=== PATIENT | female | born 1955 | race Caucasian/White ===

== ENCOUNTER 2017-01-11 07:56 | Emergency (ER) | payer BC, MEDICAID, OTHER ==
[~2017-01-11] VITALS: Ht 167.6 cm; Wt 72.6 kg
[~2017-01-11 07:56] MED LIST: BABY81CH; CAHNTIXC PO; CHAN0.5P PO; LIPI20TA; PERC5TAB8; WELLBSR150 PO
[2017-01-11 08:00] VITALS: BP 138/75
[2017-01-11] MEDS ORDERED: NORC5TAB PO (08:06)
[2017-01-11] MEDS ORDERED: SIMV40TA2 PO (08:06)
--- NOTE | 2017-01-11 08:44 | REP ---
Clinical: Trauma. Technique: AP and lateral views of the right foot. Comparison: 12/31/2010. Findings: Progressive osteopenia and degenerative changes are appreciated. No acute fracture or dislocation identified. No subcutaneous emphysema or radiodense foreign body. Impression: Age-related osteopenia and degenerative changes. No acute fracture or dislocation. Signed by Mohamud Benavidez MD 01/11/2017 08:36 A
== END 2017-01-11 08:46 | disposition home or self-care (01) ==
LOC: M ED 08:24
DX: S90.111A Contusion of right great toe without damage to nail, initial encounter (principal); W19.XXXA Unspecified fall, initial encounter; Y92.099 Unspecified place in other non-institutional residence as the place of occurrence of the external cause; Y93.9 Activity, unspecified; Y99.9 Unspecified external cause status; Z87.891 Personal history of nicotine dependence; Z79.82 Long term (current) use of aspirin; Z88.6 Allergy status to analgesic agent

== ENCOUNTER → 2017-01-21 | Outpatient (REF) | payer MEDICAID ==
[~2017-01-21] MED LIST changes: +NORC1TAB4 PO; +SIMV40TA2 PO
[2017-01-21 15:35] LABS: ALBUMIN 3.7 GM/DL (3.2-5.2); ALBUMIN/GLOBULIN RATIO 1.28 (1.00-1.93); ALKALINE PHOSPHATASE 58 U/L (45-117); ALT/SGPT 21 U/L (12-78); ANION GAP 6 MEQ/L (8-16); AST/SGOT 13 U/L (15-37); BILIRUBIN,TOTAL 0.2 MG/DL (0.2-1.0); BLOOD UREA NITROGEN 21 MG/DL (7-18); CALCIUM LEVEL 8.5 MG/DL (8.8-10.2); CARBON DIOXIDE LEVEL 27 MEQ/L (21-32); CHLORIDE LEVEL 109 MEQ/L (98-107); CHOLESTEROL LEVEL 198 MG/DL (<200); CREATININE FOR GFR 0.81 MG/DL (0.55-1.02); GLOMERULAR FILTRATION RATE > 60.0 (>45); GLUCOSE, FASTING 98 MG/DL (80-110); POTASSIUM SERUM 4.5 MEQ/L (3.5-5.1); SODIUM LEVEL 142 MEQ/L (136-145); TOTAL PROTEIN 6.6 GM/DL (6.4-8.2); TRIGLYCERIDES LEVEL 60 MG/DL (<150)
== END ==
LOC: M SFHCLACO 08:04
PROVIDERS: ATTEND Physician Assistant
DX: E78.2 Mixed hyperlipidemia (principal)

== ENCOUNTER → 2017-07-22 | Outpatient (REF) | payer MEDICAID, OTHER ==
[~2017-07-22] MED LIST changes: +BENA25TA10 PO; +CALC600T31 PO; +COQ-30CA2 PO
[2017-07-22 16:02] LABS: ALBUMIN 3.8 GM/DL (3.2-5.2); ALBUMIN/GLOBULIN RATIO 1.27 (1.00-1.93); ALKALINE PHOSPHATASE 56 U/L (45-117); ALT/SGPT 19 U/L (12-78); ANION GAP 7 MEQ/L (8-16); AST/SGOT 14 U/L (15-37); BILIRUBIN,TOTAL 0.3 MG/DL (0.2-1.0); BLOOD UREA NITROGEN 17 MG/DL (7-18); CALCIUM LEVEL 8.7 MG/DL (8.8-10.2); CARBON DIOXIDE LEVEL 28 MEQ/L (21-32); CHLORIDE LEVEL 106 MEQ/L (98-107); CHOLESTEROL LEVEL 228 MG/DL (<200); CREATININE FOR GFR 0.79 MG/DL (0.55-1.02); GLOMERULAR FILTRATION RATE > 60.0 (>45); GLUCOSE, FASTING 91 MG/DL (80-110); POTASSIUM SERUM 4.4 MEQ/L (3.5-5.1); SODIUM LEVEL 141 MEQ/L (136-145); TOTAL PROTEIN 6.8 GM/DL (6.4-8.2); TRIGLYCERIDES LEVEL 60 MG/DL (<150)
== END ==
LOC: M SFHCLACO 08:03
PROVIDERS: ATTEND Physician Assistant
DX: E78.2 Mixed hyperlipidemia (principal)

== ENCOUNTER → 2017-09-15 | Outpatient (REF) | payer OTHER ==
[2017-09-15 13:05] LABS: BASO % 0.7 % (0.0-1.0); EOS # 0.3 10^3/uL (0.0-0.50); EOS % 4.9 % (0.0-3.0); IMMATURE GRANULOCYTE % 0.4 % (0-0); LYMPH # 1.6 10^3/uL (1.5-4.5); LYMPH % 27.6 % (24.0-44.0); MEAN CORPUSCULAR HEMOGLOBIN 30.9 pg (27.0-33.0); MEAN CORPUSCULAR HGB CONC 33.1 g/dl (32.0-36.5); MEAN CORPUSCULAR VOLUME 93.3 fl (80.0-96.0); MONO # 0.4 10^3/uL (0.0-0.8); MONO % 7.6 % (0.0-5.0); NEUTROPHILS # 3.4 10^3/uL (1.8-7.7); NEUTROPHILS % 58.8 % (36.0-66.0); PLATELET COUNT, AUTOMATED 314 10^3/uL (150-450); RED CELL DISTRIBUTION WIDTH 14.6 % (11.5-14.5); WHITE BLOOD COUNT 5.7 10^3/uL (4.0-10.0)
== END ==
LOC: M LABDRWAD 12:10
PROVIDERS: ATTEND Physician Assistant Medical
DX: K62.5 Hemorrhage of anus and rectum (principal)

== ENCOUNTER 2017-09-18 08:53 | Day surgery (SDC) | payer OTHER ==
[~2017-09-18] VITALS: Ht 170.2 cm; Wt 74.0 kg
[2017-09-18] MEDS ORDERED: NS 1,000 ML IV ONE (09:45)
[2017-09-18] MEDS ORDERED: PROPOFOL 200 MG/20 ML VIAL As Ordered ONE ×2 (10:48→11:56)
--- NOTE | 2017-09-18 11:19 | ROOR ---
Patient Name: Bailey Esteves Procedure Date: 09/18/2017 10:49 AM Date of : 1955 Age: 62 Room: [facility] Gender: Female Note Status: Finalized Procedure: Colonoscopy Indications: Screening for colorectal malignant neoplasm Providers: Ish MENA MD Referring MD: LESLIE Morejon PA-C Requesting Provider: Medicines: Monitored Anesthesia Care Complications: No immediate complications. Procedure: Pre-Anesthesia Assessment: - The heart rate, respiratory rate, oxygen saturations, blood pressure, adequacy of pulmonary ventilation, and response to care were monitored throughout the procedure. The Colonoscope was introduced through the anus and advanced to the terminal ileum, with identification of the appendiceal orifice and IC valve. The colonoscopy was performed without difficulty. The patient tolerated the procedure well. The quality of the bowel preparation was good. Findings: The perianal and digital rectal examinations were normal. A 4 mm polyp was found in the hepatic flexure. The polyp was sessile. The polyp was removed with a cold snare. Resection and retrieval were complete. Multiple medium-mouthed diverticula were found in the sigmoid colon. Internal hemorrhoids were found during retroflexion. The hemorrhoids were medium-sized. The exam was otherwise without abnormality on direct and retroflexion views. Impression: - One 4 mm polyp at the hepatic flexure, removed with a cold snare. Resected and retrieved. - Mild diverticulosis in the sigmoid colon. - Internal hemorrhoids. - The colon examination was otherwise normal on direct and retroflexion views. Recommendation: - Repeat colonoscopy in 5 years for surveillance. Ish Mena MD Ish MENA MD 09/18/2017 11:19:12 AM This report has been signed electronically. Number of Addenda: 0 Note Initiated On: 09/18/2017 10:49 AM Estimated Blood Loss: Estimated blood loss: none.
[2017-09-18 11:41] VITALS: BP 144/93
== END 2017-09-18 11:43 | disposition home or self-care (01) ==
LOC: M OPP 08:53 → MERGE 11:40 → M OPP 11:43
PROVIDERS: ATTEND Internal Medicine Gastroenterology
DX: Z12.11 Encounter for screening for malignant neoplasm of colon (principal); D12.3 Benign neoplasm of transverse colon; K57.30 Diverticulosis of large intestine without perforation or abscess without bleeding; K64.8 Other hemorrhoids; E78.5 Hyperlipidemia, unspecified; Z87.19 Personal history of other diseases of the digestive system; Z78.0 Asymptomatic menopausal state; M25.572 Pain in left ankle and joints of left foot; R06.83 Snoring; Z88.8 Allergy status to other drugs, medicaments and biological substances; Z79.82 Long term (current) use of aspirin; Z79.899 Other long term (current) drug therapy; Z80.7 Family history of other malignant neoplasms of lymphoid, hematopoietic and related tissues

== ENCOUNTER 2017-10-08 10:11 | Emergency (ER) | payer OTHER ==
[~2017-10-08] VITALS: Ht 167.6 cm; Wt 72.7 kg
[2017-10-08] MEDS ORDERED: HYDR-3713 (10:22)
[2017-10-08] MEDS ORDERED: METHOCARBAMOL 1,000 MG/10 ML VIAL (J2800) IM ONE (10:45)
[2017-10-08] MEDS ORDERED: methylPREDNISolone INJ 125 MG/2 ML VIAL (J2930) IM ONE (10:45)
[2017-10-08] MEDS ORDERED: PRED20TA PO (11:30)
[2017-10-08] MEDS ORDERED: CYCL10TA PO (11:30)
[2017-10-08 11:35] VITALS: BP 125/65
[2017-10-13] MEDS ORDERED: CYCL10TA PO (13:11)
[2017-10-13] MEDS ORDERED: ASPI1TAB PO (13:11)
[2017-10-13] MEDS ORDERED: OXYC1TAB23 PO (13:11)
== END 2017-10-08 11:41 | disposition home or self-care (01) ==
LOC: M ED 10:11
DX: S16.1XXA Strain of muscle, fascia and tendon at neck level, initial encounter (principal); S29.012A Strain of muscle and tendon of back wall of thorax, initial encounter; X58.XXXA Exposure to other specified factors, initial encounter; Y92.9 Unspecified place or not applicable; Y93.H1 Activity, digging, shoveling and raking; Y99.9 Unspecified external cause status; Z87.891 Personal history of nicotine dependence; Z79.82 Long term (current) use of aspirin; Z79.899 Other long term (current) drug therapy; Z88.6 Allergy status to analgesic agent
CPT/HCPCS: 96372; 99283; J2800; J2930

== ENCOUNTER 2017-10-13 08:49 | Inpatient (IN) | payer OTHER ==
[2017-10-13] MEDS: SENOKOT S TAB PO ×2 (09:00→21:09)
[2017-10-13] MEDS: PANTOPRAZOLE 40MG INJ (PROTONIX) (C9113) IV (09:31)
[2017-10-13] MEDS: ONDANSETRON 4MG/2ML VIAL (J2405) IV (09:31)
[2017-10-13] MEDS: NS 500 ML IV ×2 (09:31→10:30)
[2017-10-13 09:37] LABS: BASO % 0.4 % (0.0-1.0); HEMOGLOBIN 17.7 g/dl (12.0-16.0); IMMATURE GRANULOCYTE % 0.5 % (0-0); LYMPH # 1.1 10^3/uL (1.5-4.5); LYMPH % 14.9 % (24.0-44.0); MEAN CORPUSCULAR HEMOGLOBIN 30.6 pg (27.0-33.0); MEAN CORPUSCULAR HGB CONC 35.4 g/dl (32.0-36.5); MEAN CORPUSCULAR VOLUME 86.5 fl (80.0-96.0); MONO # 0.8 10^3/uL (0.0-0.8); MONO % 10.2 % (0.0-5.0); NEUTROPHILS # 5.4 10^3/uL (1.8-7.7); PLATELET COUNT, AUTOMATED 255 10^3/uL (150-450); RED BLOOD COUNT 5.78 10^6/uL (4.00-5.40); RED CELL DISTRIBUTION WIDTH 13.8 % (11.5-14.5); WHITE BLOOD COUNT 7.3 10^3/uL (4.0-10.0)
[2017-10-13 09:48] LABS: INR 0.89; PARTIAL THROMBOPLASTIN TIME 26.8 SECONDS (26.8-37.9); PROTHROMBIN TIME 12.1 SECONDS (12.4-14.5)
[2017-10-13 09:55] LABS: ALBUMIN 4.4 GM/DL (3.2-5.2); ALBUMIN/GLOBULIN RATIO 0.98 (1.00-1.93); ALKALINE PHOSPHATASE 68 U/L (45-117); ALT/SGPT 22 U/L (12-78); ANION GAP 13 MEQ/L (8-16); AST/SGOT 14 U/L (7-37); BILIRUBIN,DIRECT < 0.1 MG/DL (0.0-0.2); BILIRUBIN,TOTAL 0.4 MG/DL (0.2-1.0); BLOOD UREA NITROGEN 25 MG/DL (7-18); CALCIUM LEVEL 9.8 MG/DL (8.8-10.2); CARBON DIOXIDE LEVEL 26 MEQ/L (21-32); CHLORIDE LEVEL 95 MEQ/L (98-107); CREATININE FOR GFR 1.29 MG/DL (0.55-1.02); GLOMERULAR FILTRATION RATE 44.7 (>45); GLUCOSE, FASTING 153 MG/DL (80-110); LIPASE 128 U/L (73-393); POTASSIUM SERUM 3.5 MEQ/L (3.5-5.1); SODIUM LEVEL 134 MEQ/L (136-145); TOTAL PROTEIN 8.9 GM/DL (6.4-8.2)
[2017-10-13] MEDS ORDERED: ISOVUE-370 76% 100ML VIAL (Q9967) As Ordered (09:59)
[2017-10-13 10:02] LABS: LACTIC ACID SEPSIS PROTOCOL 3.5 MMOL/L (0.4-2.0)
[2017-10-13] MEDS: ACYCLOVIR 1,000 MG in D5W 250 ML IV (11:37)
[2017-10-13 12:44] LABS: ERYTHROCYTE SEDIMENTATION RATE 17 mm/hr (0-30)
[2017-10-13] MEDS: NS 1,000 ML IV ×2 (13:00→22:24)
[2017-10-13 13:49] LABS: C REACTIVE PROTEIN QUANTITATIV 5.36 MG/DL (0.00-0.30)
[2017-10-13] MEDS: HEPARIN SOD (PORCINE) 5000 UNITS/ML VIAL SC ×2 (15:18→21:10)
[2017-10-13] MEDS: ACETAMINOPHEN TAB 650MG DOSE (2X325MG) PO ×3 (15:53→23:32)
[2017-10-13] MEDS: CEFTAROLINE FOSAMIL 600 MG in APPROPRIATE DILUENT 1 EA IV (16:41)
[2017-10-13] MEDS ORDERED: ACYCLOVIR 500 MG in D5W MINI-BAG PLUS 100 ML IV (21:00)
[2017-10-13] MEDS: ACYCLOVIR 500 MG in D5W MINI-BAG PLUS 100 ML IV (21:09)
[2017-10-13] MEDS: ONDANSETRON 4 MG TAB (S0181) PO (21:13)
[2017-10-14 00:35] LABS: APPEARANCE, URINE HAZY (CLEAR); BACTERIA, URINE AUTO NEGATIVE (NEGATIVE); BILIRUBIN, URINE AUTO NEGATIVE (NEGATIVE); BLOOD, URINE BLOOD 1+ (NEGATIVE); COLOR, URINE YELLOW (YELLOW); GLUCOSE, URINE (UA) AUTO NEGATIVE (NEGATIVE); KETONE, URINE AUTO TRACE mg/dL (NEGATIVE); LEUKOCYTE ESTERASE, URINE AUTO 3+ (NEGATIVE); MUCUS, URINE SMALL (NEGATIVE); NITRITE, URINE AUTO NEGATIVE (NEGATIVE); PROTEIN, URINE AUTO 1+ mg/dL (NEGATIVE); RBC, URINE AUTO 4 /HPF (0-3); SPECIFIC GRAVITY URINE AUTO 1.049 (1.002-1.035); SQUAMOUS EPITHELIAL CELL UR AU 3 /HPF (0-6); TRANSITIONAL EPITHELIAL AUTO <1 /HPF; UROBILINOGEN, URINE AUTO 0.2 mg/dL (0.0-2.0); WBC, URINE AUTO 37 /HPF (0-3)
[2017-10-14] MEDS: CEFTAROLINE FOSAMIL 600 MG in APPROPRIATE DILUENT 1 EA IV (02:41)
[2017-10-14] MEDS: ONDANSETRON 4 MG TAB (S0181) PO ×2 (05:09→19:26)
[2017-10-14] MEDS: HEPARIN SOD (PORCINE) 5000 UNITS/ML VIAL SC ×3 (05:10→20:15)
[2017-10-14] MEDS: ACYCLOVIR 500 MG in D5W MINI-BAG PLUS 100 ML IV (05:10)
[2017-10-14 05:13] LABS: HEMATOCRIT 42.3 % (36.0-47.0); MEAN CORPUSCULAR HEMOGLOBIN 30.2 pg (27.0-33.0); MEAN CORPUSCULAR HGB CONC 34.5 g/dl (32.0-36.5); MEAN CORPUSCULAR VOLUME 87.4 fl (80.0-96.0); PLATELET COUNT, AUTOMATED 197 10^3/uL (150-450); RED BLOOD COUNT 4.84 10^6/uL (4.00-5.40); RED CELL DISTRIBUTION WIDTH 13.6 % (11.5-14.5); WHITE BLOOD COUNT 5.2 10^3/uL (4.0-10.0)
[2017-10-14 05:20] LABS: ATYP LYMPH POS FLAG; POSITIVE MORPH POS FLAG
[2017-10-14 05:21] LABS: ADD MANUAL DIFFER YES; DIFF SLIDE NUMBER 81; HEMOGLOBIN 14.6 g/dl (12.0-16.0)
[2017-10-14 05:29] LABS: ALBUMIN 3.1 GM/DL (3.2-5.2); ALBUMIN/GLOBULIN RATIO 0.89 (1.00-1.93); ALKALINE PHOSPHATASE 47 U/L (45-117); ALT/SGPT 17 U/L (12-78); ANION GAP 7 MEQ/L (8-16); AST/SGOT 18 U/L (7-37); BILIRUBIN,TOTAL 0.3 MG/DL (0.2-1.0); BLOOD UREA NITROGEN 16 MG/DL (7-18); C REACTIVE PROTEIN QUANTITATIV 2.51 MG/DL (0.00-0.30); CALCIUM LEVEL 7.9 MG/DL (8.8-10.2); CARBON DIOXIDE LEVEL 27 MEQ/L (21-32); CHLORIDE LEVEL 104 MEQ/L (98-107); CREATININE FOR GFR 0.63 MG/DL (0.55-1.02); GLUCOSE, FASTING 100 MG/DL (80-110); MAGNESIUM LEVEL 2.2 MG/DL (1.8-2.4); POTASSIUM SERUM 3.5 MEQ/L (3.5-5.1); SODIUM LEVEL 138 MEQ/L (136-145); TOTAL PROTEIN 6.6 GM/DL (6.4-8.2)
[2017-10-14 05:34] LABS: GLOMERULAR FILTRATION RATE > 60.0 (>45)
[2017-10-14 06:32] LABS: ATYPICAL LYMPH 5 % (0-5); BANDS 1 % (< 11); BASOPHILS 1 % (0-4); EOSINOPHILS 1 % (0-5); LYMPHOCYTES 22 % (16-52); MONOCYTES 8 % (0-8); NEUTROPHILS 62 % (35-75); PLATELET ESTIMATE NORMAL (NORMAL); POIKILOCYTOSIS 1+
[2017-10-14] MEDS: SENOKOT S TAB PO ×2 (08:31→20:16)
[2017-10-14] MEDS: PANTOPRAZOLE 40MG INJ (PROTONIX) (C9113) IV (08:31)
[2017-10-14] MEDS: ACYCLOVIR 200 MG CAPSULE PO ×4 (10:42→20:15)
[2017-10-14] MEDS: predniSONE 20 MG TAB PO (10:42)
[2017-10-14] MEDS: PIPERACILLIN/TAZOBACTAM SOD 3.375 GM in APPROPRIATE DILUENT 1 EA IV ×3 (13:36→23:58)
[2017-10-14] MEDS: ACETAMINOPHEN TAB 650MG DOSE (2X325MG) PO (20:16)
[2017-10-15 05:41] LABS: HEMATOCRIT 42.6 % (36.0-47.0); HEMOGLOBIN 14.8 g/dl (12.0-16.0); MEAN CORPUSCULAR HEMOGLOBIN 30.4 pg (27.0-33.0); MEAN CORPUSCULAR HGB CONC 34.7 g/dl (32.0-36.5); MEAN CORPUSCULAR VOLUME 87.5 fl (80.0-96.0); PLATELET COUNT, AUTOMATED 225 10^3/uL (150-450); RED BLOOD COUNT 4.87 10^6/uL (4.00-5.40); RED CELL DISTRIBUTION WIDTH 13.5 % (11.5-14.5); WHITE BLOOD COUNT 5.5 10^3/uL (4.0-10.0)
[2017-10-15 05:48] LABS: ADD MANUAL DIFFER YES; ATYP LYMPH POS FLAG; DIFF SLIDE NUMBER 54; POSITIVE MORPH POS FLAG
[2017-10-15 06:05] LABS: ALBUMIN 3.3 GM/DL (3.2-5.2); ALBUMIN/GLOBULIN RATIO 0.92 (1.00-1.93); ALKALINE PHOSPHATASE 46 U/L (45-117); ALT/SGPT 22 U/L (12-78); ANION GAP 9 MEQ/L (8-16); AST/SGOT 19 U/L (7-37); BILIRUBIN,TOTAL 0.3 MG/DL (0.2-1.0); BLOOD UREA NITROGEN 17 MG/DL (7-18); C REACTIVE PROTEIN QUANTITATIV 1.46 MG/DL (0.00-0.30); CALCIUM LEVEL 8.4 MG/DL (8.8-10.2); CARBON DIOXIDE LEVEL 26 MEQ/L (21-32); CHLORIDE LEVEL 103 MEQ/L (98-107); CREATININE FOR GFR 0.74 MG/DL (0.55-1.02); GLOMERULAR FILTRATION RATE > 60.0 (>45); GLUCOSE, FASTING 91 MG/DL (80-110); MAGNESIUM LEVEL 2.3 MG/DL (1.8-2.4); POTASSIUM SERUM 3.2 MEQ/L (3.5-5.1); SODIUM LEVEL 138 MEQ/L (136-145); TOTAL PROTEIN 6.9 GM/DL (6.4-8.2)
[2017-10-15] MEDS: HEPARIN SOD (PORCINE) 5000 UNITS/ML VIAL SC ×3 (06:09→21:43)
[2017-10-15] MEDS: PIPERACILLIN/TAZOBACTAM SOD 3.375 GM in APPROPRIATE DILUENT 1 EA IV ×3 (06:09→18:35)
[2017-10-15] MEDS: ACYCLOVIR 200 MG CAPSULE PO ×5 (06:09→21:42)
[2017-10-15 06:25] LABS: ATYPICAL LYMPH 11 % (0-5); BASOPHILS 1 % (0-4); LYMPHOCYTES 33 % (16-52); MONOCYTES 13 % (0-8); NEUTROPHILS 42 % (35-75)
[2017-10-15 06:26] LABS: ANISOCYTOSIS 1+; PLATELET ESTIMATE NORMAL (NORMAL)
[2017-10-15] MEDS: SENOKOT S TAB PO ×2 (08:26→21:42)
[2017-10-15] MEDS: predniSONE 20 MG TAB PO (08:26)
[2017-10-15] MEDS: PANTOPRAZOLE 40MG INJ (PROTONIX) (C9113) IV (08:26)
[2017-10-15] MEDS: POTASSIUM CHLORIDE 10 MEQ SR TABLET PO (08:27)
[2017-10-15 12:30] LABS: APPEARANCE, URINE CLEAR (CLEAR); BACTERIA, URINE AUTO NEGATIVE (NEGATIVE); BILIRUBIN, URINE AUTO NEGATIVE (NEGATIVE); BLOOD, URINE BLOOD NEGATIVE (NEGATIVE); COLOR, URINE YELLOW (YELLOW); GLUCOSE, URINE (UA) AUTO NEGATIVE (NEGATIVE); KETONE, URINE AUTO TRACE mg/dL (NEGATIVE); LEUKOCYTE ESTERASE, URINE AUTO NEGATIVE (NEGATIVE); MUCUS, URINE SMALL (NEGATIVE); NITRITE, URINE AUTO NEGATIVE (NEGATIVE); PROTEIN, URINE AUTO NEGATIVE (NEGATIVE); RBC, URINE AUTO 5 /HPF (0-3); SPECIFIC GRAVITY URINE AUTO 1.029 (1.002-1.035); SQUAMOUS EPITHELIAL CELL UR AU 0 /HPF (0-6); UROBILINOGEN, URINE AUTO 0.2 mg/dL (0.0-2.0); WBC, URINE AUTO 2 /HPF (0-3)
[2017-10-15 12:44] LABS: HIV 1&2 SCREEN CENTAUR NEGATIVE (NEGATIVE)
[2017-10-15] MEDS: D5W/0.9% SODIUM CHLORIDE 1,000 ML IV (14:25)
[2017-10-15] MEDS: VANCOMYCIN HCL 1,000 MG, VIAL MATE ADAPTER 1 EACH in D5W 250 ML IV (14:25)
[2017-10-15] MEDS: VANCOMYCIN HCL 500 MG in D5W MINI-BAG PLUS 100 ML IV (16:23)
[2017-10-15] MEDS: LORazepam 2 MG/ML VIAL (J2060) IV (21:43)
[2017-10-16] MEDS: D5W/0.9% SODIUM CHLORIDE 1,000 ML IV ×4 (00:58→21:04)
[2017-10-16] MEDS: PIPERACILLIN/TAZOBACTAM SOD 3.375 GM in APPROPRIATE DILUENT 1 EA IV ×4 (00:58→18:05)
[2017-10-16] MEDS: VANCOMYCIN HCL 1,000 MG, VIAL MATE ADAPTER 1 EACH in D5W 250 ML IV ×2 (01:43→14:55)
[2017-10-16] MEDS: ONDANSETRON 4 MG TAB (S0181) PO ×3 (01:43→15:53)
[2017-10-16 06:25] LABS: HEMATOCRIT 38.2 % (36.0-47.0); HEMOGLOBIN 13.3 g/dl (12.0-16.0); MEAN CORPUSCULAR HEMOGLOBIN 30.1 pg (27.0-33.0); MEAN CORPUSCULAR HGB CONC 34.8 g/dl (32.0-36.5); MEAN CORPUSCULAR VOLUME 86.4 fl (80.0-96.0); PLATELET COUNT, AUTOMATED 238 10^3/uL (150-450); RED BLOOD COUNT 4.42 10^6/uL (4.00-5.40); RED CELL DISTRIBUTION WIDTH 13.3 % (11.5-14.5); WHITE BLOOD COUNT 7.1 10^3/uL (4.0-10.0)
[2017-10-16] MEDS: ACYCLOVIR 200 MG CAPSULE PO ×5 (06:36→21:03)
[2017-10-16] MEDS: HEPARIN SOD (PORCINE) 5000 UNITS/ML VIAL SC ×3 (06:37→21:04)
[2017-10-16 06:38] LABS: ADD MANUAL DIFFER YES; ATYP LYMPH POS FLAG; DIFF SLIDE NUMBER 37; POSITIVE MORPH POS FLAG
[2017-10-16 06:45] LABS: ALKALINE PHOSPHATASE 41 U/L (45-117); ALT/SGPT 16 U/L (12-78); ANION GAP 7 MEQ/L (8-16); AST/SGOT 13 U/L (7-37); BILIRUBIN,TOTAL 0.3 MG/DL (0.2-1.0); BLOOD UREA NITROGEN 15 MG/DL (7-18); C REACTIVE PROTEIN QUANTITATIV 0.66 MG/DL (0.00-0.30); CALCIUM LEVEL 7.8 MG/DL (8.8-10.2); CARBON DIOXIDE LEVEL 26 MEQ/L (21-32); CHLORIDE LEVEL 105 MEQ/L (98-107); CREATININE FOR GFR 0.64 MG/DL (0.55-1.02); GLOMERULAR FILTRATION RATE > 60.0 (>45); GLUCOSE, FASTING 119 MG/DL (80-110); MAGNESIUM LEVEL 2.3 MG/DL (1.8-2.4); POTASSIUM SERUM 3.3 MEQ/L (3.5-5.1); SODIUM LEVEL 138 MEQ/L (136-145)
[2017-10-16 06:49] LABS: ESTIMATED AVERAGE GLUCOSE 120 MG/DL (60-110); HEMOGLOBIN A1c 5.8 %
[2017-10-16 07:35] LABS: ATYPICAL LYMPH 12 % (0-5); LYMPHOCYTES 23 % (16-52); MONOCYTES 10 % (0-8); NEUTROPHILS 55 % (35-75); PLATELET ESTIMATE NORMAL (NORMAL); POIKILOCYTOSIS 1+
[2017-10-16] MEDS: PANTOPRAZOLE 40MG INJ (PROTONIX) (C9113) IV (08:47)
[2017-10-16] MEDS: SENOKOT S TAB PO ×2 (08:47→21:03)
[2017-10-16] MEDS: predniSONE 20 MG TAB PO (08:47)
[2017-10-16] MEDS: KCL 10MEQ IN 100ML SWI (KRUN) 10 MEQ in APPROPRIATE DILUENT 1 EA IV (08:47)
[2017-10-16] MEDS: MORPHINE 2 MG/ML 1ML SYRINGE IV (08:48)
[2017-10-16] MEDS: POTASSIUM CHLORIDE 10 MEQ SR TABLET PO (11:00)
[2017-10-16 13:57] LABS: POTASSIUM SERUM 3.8 MEQ/L (3.5-5.1)
[2017-10-16 14:12] LABS: HSV TYPE I IgM AB <1:10 titer (<1:10); HSV TYPE II IgM ABY <1:10 titer (<1:10); HSV-1 DNA Negative (Negative); HSV-2 DNA Negative (Negative)
[2017-10-16] MEDS: SODIUM CHLORIDE 0.9% 1000 ML IV (14:54)
[2017-10-17 00:06] LABS: Lyme Disease IgG/IgM Antibodie <0.91 ISR (0.00-0.90); Lyme Disease IgM Ab Quantitati <0.80 index (0.00-0.79)
[2017-10-17] MEDS: PIPERACILLIN/TAZOBACTAM SOD 3.375 GM in APPROPRIATE DILUENT 1 EA IV ×4 (00:51→18:44)
[2017-10-17] MEDS: VANCOMYCIN HCL 1,000 MG, VIAL MATE ADAPTER 1 EACH in D5W 250 ML IV ×2 (01:35→15:02)
[2017-10-17] MEDS: D5W/0.9% SODIUM CHLORIDE 1,000 ML IV ×3 (04:25→21:49)
[2017-10-17 04:34] LABS: HEMATOCRIT 39.1 % (36.0-47.0); HEMOGLOBIN 13.6 g/dl (12.0-16.0); MEAN CORPUSCULAR HEMOGLOBIN 30.3 pg (27.0-33.0); MEAN CORPUSCULAR HGB CONC 34.8 g/dl (32.0-36.5); MEAN CORPUSCULAR VOLUME 87.1 fl (80.0-96.0); PLATELET COUNT, AUTOMATED 261 10^3/uL (150-450); RED BLOOD COUNT 4.49 10^6/uL (4.00-5.40); RED CELL DISTRIBUTION WIDTH 13.3 % (11.5-14.5); WHITE BLOOD COUNT 7.7 10^3/uL (4.0-10.0)
[2017-10-17 04:35] LABS: ADD MANUAL DIFFER YES; ATYP LYMPH POS FLAG; DIFF SLIDE NUMBER 22; POSITIVE MORPH POS FLAG
[2017-10-17 04:54] LABS: ATYPICAL LYMPH 7 % (0-5); LYMPHOCYTES 37 % (16-52); MONOCYTES 5 % (0-8); NEUTROPHILS 51 % (35-75); PLATELET ESTIMATE NORMAL (NORMAL)
[2017-10-17 04:55] LABS: ALBUMIN 3.1 GM/DL (3.2-5.2); ALKALINE PHOSPHATASE 39 U/L (45-117); ALT/SGPT 17 U/L (12-78); ANION GAP 9 MEQ/L (8-16); AST/SGOT 7 U/L (7-37); BILIRUBIN,TOTAL 0.4 MG/DL (0.2-1.0); BLOOD UREA NITROGEN 9 MG/DL (7-18); C REACTIVE PROTEIN QUANTITATIV 0.39 MG/DL (0.00-0.30); CALCIUM LEVEL 7.6 MG/DL (8.8-10.2); CARBON DIOXIDE LEVEL 23 MEQ/L (21-32); CHLORIDE LEVEL 107 MEQ/L (98-107); CPK CREATINE PHOSPHOKINASE 58 U/L (26-192); CREATININE FOR GFR 0.61 MG/DL (0.55-1.02); GLOMERULAR FILTRATION RATE > 60.0 (>45); GLUCOSE, FASTING 110 MG/DL (80-110); MAGNESIUM LEVEL 2.3 MG/DL (1.8-2.4); MB/CK RELATIVE INDEX 1.72 (< OR =4); POIKILOCYTOSIS 1+; POTASSIUM SERUM 3.5 MEQ/L (3.5-5.1); SODIUM LEVEL 139 MEQ/L (136-145); TOTAL PROTEIN 6.2 GM/DL (6.4-8.2); TROPONIN I < 0.02 NG/ML (< 0.10)
[2017-10-17] MEDS: ACYCLOVIR 200 MG CAPSULE PO ×5 (05:13→21:46)
[2017-10-17] MEDS: HEPARIN SOD (PORCINE) 5000 UNITS/ML VIAL SC ×3 (05:14→21:45)
[2017-10-17 05:40] LABS: FREE T4 1.16 NG/DL (0.76-1.46)
[2017-10-17] MEDS: PANTOPRAZOLE 40MG INJ (PROTONIX) (C9113) IV (09:42)
[2017-10-17] MEDS: SENOKOT S TAB PO ×2 (09:42→21:45)
[2017-10-17] MEDS: predniSONE 20 MG TAB PO (09:42)
[2017-10-17 13:32] LABS: CPK CREATINE PHOSPHOKINASE 56 U/L (26-192); TROPONIN I < 0.02 NG/ML (< 0.10); VANCOMYCIN LEVEL TROUGH 11.3 UG/ML (10.0-20.0)
[2017-10-17 13:33] LABS: MB/CK RELATIVE INDEX 1.78 (< OR =4)
[2017-10-17] MEDS: ACETAMINOPHEN TAB 650MG DOSE (2X325MG) PO (21:46)
[2017-10-18] MEDS: PIPERACILLIN/TAZOBACTAM SOD 3.375 GM in APPROPRIATE DILUENT 1 EA IV ×4 (01:00→18:55)
[2017-10-18] MEDS: VANCOMYCIN HCL 1,000 MG, VIAL MATE ADAPTER 1 EACH in D5W 250 ML IV ×2 (02:36→14:48)
[2017-10-18] MEDS: ACYCLOVIR 200 MG CAPSULE PO ×5 (05:45→21:44)
[2017-10-18] MEDS: HEPARIN SOD (PORCINE) 5000 UNITS/ML VIAL SC (05:46)
[2017-10-18 05:58] LABS: BASO % 0.4 % (0.0-1.0); EOS % 0.5 % (0.0-3.0); HEMATOCRIT 38.2 % (36.0-47.0); HEMOGLOBIN 13.4 g/dl (12.0-16.0); IMMATURE GRANULOCYTE % 0.5 % (0-0); LYMPH # 3.7 10^3/uL (1.5-4.5); MEAN CORPUSCULAR HEMOGLOBIN 30.5 pg (27.0-33.0); MEAN CORPUSCULAR HGB CONC 35.1 g/dl (32.0-36.5); MEAN CORPUSCULAR VOLUME 86.8 fl (80.0-96.0); MONO # 0.5 10^3/uL (0.0-0.8); MONO % 5.8 % (0.0-5.0); NEUTROPHILS # 4.3 10^3/uL (1.8-7.7); NEUTROPHILS % 49.8 % (36.0-66.0); PLATELET COUNT, AUTOMATED 298 10^3/uL (150-450); RED CELL DISTRIBUTION WIDTH 13.2 % (11.5-14.5); WHITE BLOOD COUNT 8.5 10^3/uL (4.0-10.0)
[2017-10-18 06:24] LABS: ALBUMIN 3.2 GM/DL (3.2-5.2); ALBUMIN/GLOBULIN RATIO 0.94 (1.00-1.93); ALKALINE PHOSPHATASE 41 U/L (45-117); ALT/SGPT 24 U/L (12-78); ANION GAP 9 MEQ/L (8-16); AST/SGOT 17 U/L (7-37); BILIRUBIN,TOTAL 0.5 MG/DL (0.2-1.0); BLOOD UREA NITROGEN 8 MG/DL (7-18); C REACTIVE PROTEIN QUANTITATIV < 0.30 MG/DL (0.00-0.30); CALCIUM LEVEL 8.3 MG/DL (8.8-10.2); CARBON DIOXIDE LEVEL 25 MEQ/L (21-32); CHLORIDE LEVEL 105 MEQ/L (98-107); CREATININE FOR GFR 0.71 MG/DL (0.55-1.02); GLOMERULAR FILTRATION RATE > 60.0 (>45); GLUCOSE, FASTING 104 MG/DL (80-110); MAGNESIUM LEVEL 2.4 MG/DL (1.8-2.4); SODIUM LEVEL 139 MEQ/L (136-145); TOTAL PROTEIN 6.6 GM/DL (6.4-8.2)
[2017-10-18 06:29] LABS: POTASSIUM SERUM 2.8 MEQ/L (3.5-5.1)
[2017-10-18] MEDS: POTASSIUM CHLORIDE 10 MEQ SR TABLET PO ×3 (07:12→14:48)
[2017-10-18] MEDS: SENOKOT S TAB PO ×2 (08:29→21:44)
[2017-10-18] MEDS: D5W/0.9% SODIUM CHLORIDE 1,000 ML IV ×2 (08:29→12:38)
[2017-10-18] MEDS: PANTOPRAZOLE 40MG INJ (PROTONIX) (C9113) IV (08:30)
[2017-10-18] MEDS: predniSONE 20 MG TAB PO (08:30)
[2017-10-18 13:11] LABS: ANION GAP 8 MEQ/L (8-16); BLOOD UREA NITROGEN 7 MG/DL (7-18); CARBON DIOXIDE LEVEL 24 MEQ/L (21-32); CHLORIDE LEVEL 106 MEQ/L (98-107); GLOMERULAR FILTRATION RATE > 60.0 (>45); GLUCOSE, FASTING 124 MG/DL (80-110); POTASSIUM SERUM 3.3 MEQ/L (3.5-5.1); SODIUM LEVEL 138 MEQ/L (136-145)
[2017-10-18] MEDS: ACETAMINOPHEN TAB 650MG DOSE (2X325MG) PO (21:44)
[2017-10-19 00:06] LABS: VARICELLA ZOSTER VIRUS PCR Positive (Negative)
[2017-10-19] MEDS: D5W/0.9% SODIUM CHLORIDE 1,000 ML IV ×2 (01:29→05:32)
[2017-10-19] MEDS: PIPERACILLIN/TAZOBACTAM SOD 3.375 GM in APPROPRIATE DILUENT 1 EA IV ×2 (01:29→06:16)
[2017-10-19] MEDS: HEPARIN SOD (PORCINE) 5000 UNITS/ML VIAL SC ×4 (02:21→22:00)
[2017-10-19] MEDS: VANCOMYCIN HCL 1,000 MG, VIAL MATE ADAPTER 1 EACH in D5W 250 ML IV (02:22)
[2017-10-19] MEDS: ACYCLOVIR 200 MG CAPSULE PO ×5 (06:15→21:00)
[2017-10-19] MEDS: ACETAMINOPHEN TAB 650MG DOSE (2X325MG) PO (06:15)
[2017-10-19 06:16] LABS: BASO % 0.3 % (0.0-1.0); EOS # 0.1 10^3/uL (0.0-0.50); EOS % 0.9 % (0.0-3.0); HEMATOCRIT 38.9 % (36.0-47.0); HEMOGLOBIN 13.6 g/dl (12.0-16.0); IMMATURE GRANULOCYTE # 0.1 10^3/uL (0-0); IMMATURE GRANULOCYTE % 0.6 % (0-0); LYMPH # 3.8 10^3/uL (1.5-4.5); LYMPH % 38.9 % (24.0-44.0); MEAN CORPUSCULAR HEMOGLOBIN 30.4 pg (27.0-33.0); MONO # 0.5 10^3/uL (0.0-0.8); MONO % 5.4 % (0.0-5.0); NEUTROPHILS # 5.3 10^3/uL (1.8-7.7); NEUTROPHILS % 53.9 % (36.0-66.0); PLATELET COUNT, AUTOMATED 328 10^3/uL (150-450); RED BLOOD COUNT 4.47 10^6/uL (4.00-5.40); RED CELL DISTRIBUTION WIDTH 13.3 % (11.5-14.5); WHITE BLOOD COUNT 9.8 10^3/uL (4.0-10.0)
[2017-10-19 06:36] LABS: ALBUMIN 3.2 GM/DL (3.2-5.2); ALBUMIN/GLOBULIN RATIO 0.97 (1.00-1.93); ALKALINE PHOSPHATASE 41 U/L (45-117); ALT/SGPT 26 U/L (12-78); ANION GAP 11 MEQ/L (8-16); AST/SGOT 15 U/L (7-37); BILIRUBIN,TOTAL 0.4 MG/DL (0.2-1.0); BLOOD UREA NITROGEN 8 MG/DL (7-18); CALCIUM LEVEL 8.1 MG/DL (8.8-10.2); CARBON DIOXIDE LEVEL 24 MEQ/L (21-32); CHLORIDE LEVEL 106 MEQ/L (98-107); GLOMERULAR FILTRATION RATE > 60.0 (>45); GLUCOSE, FASTING 96 MG/DL (80-110); MAGNESIUM LEVEL 2.3 MG/DL (1.8-2.4); POTASSIUM SERUM 3.3 MEQ/L (3.5-5.1); SODIUM LEVEL 141 MEQ/L (136-145); TOTAL PROTEIN 6.5 GM/DL (6.4-8.2)
[2017-10-19] MEDS: ONDANSETRON 4 MG TAB (S0181) PO ×2 (07:43→23:09)
[2017-10-19] MEDS: SENOKOT S TAB PO ×2 (09:00→21:00)
[2017-10-19] MEDS: DOXYCYCLINE HYCLATE 100 MG TAB PO ×2 (10:32→21:00)
[2017-10-19] MEDS: PANTOPRAZOLE 40MG INJ (PROTONIX) (C9113) IV (10:32)
[2017-10-19] MEDS: predniSONE 20 MG TAB PO (10:33)
[2017-10-19] MEDS: POTASSIUM CHLORIDE 10 MEQ SR TABLET PO (10:35)
[2017-10-20] MEDS: HEPARIN SOD (PORCINE) 5000 UNITS/ML VIAL SC ×3 (06:22→22:12)
[2017-10-20] MEDS: ACYCLOVIR 200 MG CAPSULE PO ×5 (06:22→22:11)
[2017-10-20] MEDS: ONDANSETRON 4 MG TAB (S0181) PO (06:22)
[2017-10-20] MEDS: ACETAMINOPHEN TAB 650MG DOSE (2X325MG) PO (06:26)
[2017-10-20 07:01] LABS: BASO # 0.1 10^3/uL (0.0-0.2); BASO % 0.5 % (0.0-1.0); EOS # 0.1 10^3/uL (0.0-0.50); EOS % 1.4 % (0.0-3.0); HEMATOCRIT 40.3 % (36.0-47.0); HEMOGLOBIN 14.1 g/dl (12.0-16.0); IMMATURE GRANULOCYTE # 0.1 10^3/uL (0-0); IMMATURE GRANULOCYTE % 0.8 % (0-0); LYMPH # 3.3 10^3/uL (1.5-4.5); LYMPH % 33.1 % (24.0-44.0); MEAN CORPUSCULAR HEMOGLOBIN 30.3 pg (27.0-33.0); MEAN CORPUSCULAR VOLUME 86.5 fl (80.0-96.0); MONO # 0.6 10^3/uL (0.0-0.8); MONO % 6.1 % (0.0-5.0); NEUTROPHILS # 5.8 10^3/uL (1.8-7.7); NEUTROPHILS % 58.1 % (36.0-66.0); PLATELET COUNT, AUTOMATED 383 10^3/uL (150-450); RED BLOOD COUNT 4.66 10^6/uL (4.00-5.40); RED CELL DISTRIBUTION WIDTH 13.2 % (11.5-14.5)
[2017-10-20 07:32] LABS: ALBUMIN 3.3 GM/DL (3.2-5.2); ALBUMIN/GLOBULIN RATIO 0.87 (1.00-1.93); ALKALINE PHOSPHATASE 45 U/L (45-117); ALT/SGPT 31 U/L (12-78); ANION GAP 9 MEQ/L (8-16); AST/SGOT 15 U/L (7-37); BILIRUBIN,TOTAL 0.4 MG/DL (0.2-1.0); BLOOD UREA NITROGEN 10 MG/DL (7-18); CALCIUM LEVEL 8.8 MG/DL (8.8-10.2); CARBON DIOXIDE LEVEL 26 MEQ/L (21-32); CHLORIDE LEVEL 103 MEQ/L (98-107); CREATININE FOR GFR 0.68 MG/DL (0.55-1.02); GLOMERULAR FILTRATION RATE > 60.0 (>45); GLUCOSE, FASTING 83 MG/DL (80-110); MAGNESIUM LEVEL 2.2 MG/DL (1.8-2.4); POTASSIUM SERUM 3.5 MEQ/L (3.5-5.1); SODIUM LEVEL 138 MEQ/L (136-145); TOTAL PROTEIN 7.1 GM/DL (6.4-8.2)
[2017-10-20] MEDS: SENOKOT S TAB PO ×2 (10:56→22:11)
[2017-10-20] MEDS: POTASSIUM CHLORIDE 10 MEQ SR TABLET PO (10:58)
[2017-10-20] MEDS: DOXYCYCLINE HYCLATE 100 MG TAB PO ×2 (10:59→22:11)
[2017-10-20] MEDS: predniSONE 10 MG TAB PO (10:59)
[2017-10-20] MEDS: PANTOPRAZOLE 40MG INJ (PROTONIX) (C9113) IV (10:59)
[2017-10-20] MEDS ORDERED: TEARS NATURALE FREE OPHTH DROP VIAL OS (11:30)
[2017-10-20] MEDS: predniSONE 50 MG TAB PO (13:29)
[2017-10-20] MEDS: POLYVINYL ALCOHOL OPHTH SOLN 15 ML(LIQUITEARS) OS ×3 (13:31→22:13)
[2017-10-20] MEDS: CALAMINE LOTION 177 ML BTL TOP (22:00)
[2017-10-21] MEDS: ACYCLOVIR 200 MG CAPSULE PO ×5 (05:50→20:40)
[2017-10-21] MEDS: HEPARIN SOD (PORCINE) 5000 UNITS/ML VIAL SC ×3 (05:50→20:40)
[2017-10-21 08:33] LABS: HEMATOCRIT 41.6 % (36.0-47.0); HEMOGLOBIN 14.9 g/dl (12.0-16.0); MEAN CORPUSCULAR HGB CONC 35.8 g/dl (32.0-36.5); MEAN CORPUSCULAR VOLUME 86.5 fl (80.0-96.0); PLATELET COUNT, AUTOMATED 445 10^3/uL (150-450); RED BLOOD COUNT 4.81 10^6/uL (4.00-5.40); RED CELL DISTRIBUTION WIDTH 13.6 % (11.5-14.5); WHITE BLOOD COUNT 15.2 10^3/uL (4.0-10.0)
[2017-10-21 08:46] LABS: ANION GAP 9 MEQ/L (8-16); BLOOD UREA NITROGEN 15 MG/DL (7-18); CALCIUM LEVEL 9.3 MG/DL (8.8-10.2); CARBON DIOXIDE LEVEL 25 MEQ/L (21-32); CHLORIDE LEVEL 103 MEQ/L (98-107); CREATININE FOR GFR 0.69 MG/DL (0.55-1.02); GLOMERULAR FILTRATION RATE > 60.0 (>45); GLUCOSE, FASTING 88 MG/DL (80-110); POTASSIUM SERUM 3.9 MEQ/L (3.5-5.1); SODIUM LEVEL 137 MEQ/L (136-145)
[2017-10-21] MEDS: predniSONE 20 MG TAB PO (09:00)
[2017-10-21] MEDS: SENOKOT S TAB PO ×2 (09:00→20:41)
[2017-10-21] MEDS: ONDANSETRON 4 MG TAB (S0181) PO ×2 (09:00→20:41)
[2017-10-21] MEDS: DOXYCYCLINE HYCLATE 100 MG TAB PO ×2 (09:00→20:41)
[2017-10-21] MEDS: PANTOPRAZOLE 40MG INJ (PROTONIX) (C9113) IV (09:00)
[2017-10-21] MEDS: POTASSIUM CHLORIDE 10 MEQ SR TABLET PO (09:01)
[2017-10-21] MEDS: POLYVINYL ALCOHOL OPHTH SOLN 15 ML(LIQUITEARS) OS ×4 (09:01→20:41)
[2017-10-21] MEDS: CALAMINE LOTION 177 ML BTL TOP (20:41)
[2017-10-22] MEDS: ACYCLOVIR 200 MG CAPSULE PO ×2 (05:30→08:26)
[2017-10-22] MEDS: HEPARIN SOD (PORCINE) 5000 UNITS/ML VIAL SC (05:30)
[2017-10-22] MEDS: ACETAMINOPHEN TAB 650MG DOSE (2X325MG) PO (07:01)
[2017-10-22 07:05] LABS: HEMATOCRIT 40.3 % (36.0-47.0); HEMOGLOBIN 13.9 g/dl (12.0-16.0); MEAN CORPUSCULAR HEMOGLOBIN 30.2 pg (27.0-33.0); MEAN CORPUSCULAR HGB CONC 34.5 g/dl (32.0-36.5); MEAN CORPUSCULAR VOLUME 87.6 fl (80.0-96.0); PLATELET COUNT, AUTOMATED 446 10^3/uL (150-450); WHITE BLOOD COUNT 13.3 10^3/uL (4.0-10.0)
[2017-10-22 07:28] LABS: ANION GAP 8 MEQ/L (8-16); BLOOD UREA NITROGEN 18 MG/DL (7-18); CARBON DIOXIDE LEVEL 28 MEQ/L (21-32); CHLORIDE LEVEL 102 MEQ/L (98-107); CREATININE FOR GFR 0.71 MG/DL (0.55-1.02); GLOMERULAR FILTRATION RATE > 60.0 (>45); GLUCOSE, FASTING 75 MG/DL (80-110); POTASSIUM SERUM 3.8 MEQ/L (3.5-5.1); SODIUM LEVEL 138 MEQ/L (136-145)
[2017-10-22] MEDS: POTASSIUM CHLORIDE 10 MEQ SR TABLET PO (08:26)
[2017-10-22] MEDS: SENOKOT S TAB PO (08:27)
[2017-10-22] MEDS: ONDANSETRON 4 MG TAB (S0181) PO (08:27)
[2017-10-22] MEDS: predniSONE 20 MG TAB PO (08:27)
[2017-10-22] MEDS: POLYVINYL ALCOHOL OPHTH SOLN 15 ML(LIQUITEARS) OS (08:27)
[2017-10-22] MEDS: PANTOPRAZOLE 40MG INJ (PROTONIX) (C9113) IV (08:27)
== END 2017-10-22 12:49 | disposition home or self-care (01) | DRG 723 ==
LOC: M ED 08:49 → M MSPAV 10-16 23:03 → M ED INP 12:24 → M PCU 15:07
DX: B02.8 Zoster with other complications (principal); N17.9 Acute kidney failure, unspecified; E87.2 Acidosis; E87.1 Hypo-osmolality and hyponatremia; G51.0 Bell's palsy; I95.1 Orthostatic hypotension; I44.0 Atrioventricular block, first degree; E78.5 Hyperlipidemia, unspecified; Z79.82 Long term (current) use of aspirin; Z79.899 Other long term (current) drug therapy; Z88.6 Allergy status to analgesic agent; Z87.891 Personal history of nicotine dependence

== ENCOUNTER → 2018-01-13 | Outpatient (REF) | payer MEDICARE, MEDICAID ==
[2018-01-13 15:12] LABS: ALBUMIN 3.9 GM/DL (3.2-5.2); ALBUMIN/GLOBULIN RATIO 1.22 (1.00-1.93); ALKALINE PHOSPHATASE 59 U/L (45-117); ALT/SGPT 20 U/L (12-78); ANION GAP 7 MEQ/L (8-16); AST/SGOT 13 U/L (7-37); BILIRUBIN,TOTAL 0.4 MG/DL (0.2-1.0); BLOOD UREA NITROGEN 14 MG/DL (7-18); CALCIUM LEVEL 8.9 MG/DL (8.8-10.2); CARBON DIOXIDE LEVEL 27 MEQ/L (21-32); CHLORIDE LEVEL 108 MEQ/L (98-107); CHOLESTEROL LEVEL 219 MG/DL (<200); CREATININE FOR GFR 0.73 MG/DL (0.55-1.30); GLOMERULAR FILTRATION RATE > 60.0 (>45); GLUCOSE, FASTING 96 MG/DL (70-100); HDL CHOLESTEROL 73 MG/DL (>40); LDL CHOLESTEROL 129.8 MG/DL (<100); NON-HDL-C 146 MG/DL; POTASSIUM SERUM 4.5 MEQ/L (3.5-5.1); SODIUM LEVEL 142 MEQ/L (136-145); TOTAL PROTEIN 7.1 GM/DL (6.4-8.2); TRIGLYCERIDES LEVEL 81 MG/DL (<150)
== END ==
LOC: M SFHCLACO 08:44
DX: E78.2 Mixed hyperlipidemia (principal)
CPT/HCPCS: 80053

== ENCOUNTER → 2018-07-21 | Outpatient (REF) | payer MEDICARE, MEDICAID ==
[2018-07-21 21:03] LABS: ALBUMIN 4.1 GM/DL (3.2-5.2); ALBUMIN/GLOBULIN RATIO 1.37 (1.00-1.93); ALKALINE PHOSPHATASE 57 U/L (45-117); ALT/SGPT 28 U/L (12-78); ANION GAP 6 MEQ/L (8-16); AST/SGOT 17 U/L (7-37); BILIRUBIN,TOTAL 0.4 MG/DL (0.2-1.0); BLOOD UREA NITROGEN 15 MG/DL (7-18); CALCIUM LEVEL 9.1 MG/DL (8.8-10.2); CARBON DIOXIDE LEVEL 29 MEQ/L (21-32); CHLORIDE LEVEL 110 MEQ/L (98-107); CHOLESTEROL LEVEL 203 MG/DL (<200); CHOLESTEROL RISK RATIO 2.537 (<5); CREATININE FOR GFR 0.84 MG/DL (0.55-1.30); GLOMERULAR FILTRATION RATE > 60.0 (>45); GLUCOSE, FASTING 91 MG/DL (70-100); HDL CHOLESTEROL 80 MG/DL (>40); LDL CHOLESTEROL 111 MG/DL (<100); NON-HDL-C 123 MG/DL; POTASSIUM SERUM 4.3 MEQ/L (3.5-5.1); SODIUM LEVEL 145 MEQ/L (136-145); TOTAL PROTEIN 7.1 GM/DL (6.4-8.2); TRIGLYCERIDES LEVEL 58 MG/DL (<150)
== END ==
LOC: M SFHCADAM 12:27
DX: E78.2 Mixed hyperlipidemia (principal)
CPT/HCPCS: 80053

== ENCOUNTER → 2019-02-08 | Outpatient (REF) | payer OTHER ==
[~2019-02-08] MED LIST changes: +ACYC1CAP20 PO; +ASPI81TA26 PO; +Artificial Tears OS; +CALALOT TOP; +CYCL10TA PO; +HYDR-3713; -NORC1TAB4 PO; +NORC1TAB7 PO; +OXYC1TAB23 PO; +PRED20TA PO
[2019-02-08 14:25] LABS: ALBUMIN 3.9 GM/DL (3.2-5.2); ALT/SGPT 27 U/L (12-78); BILIRUBIN,TOTAL 0.5 MG/DL (0.2-1.0); BLOOD UREA NITROGEN 17 MG/DL (7-18); CALCIUM LEVEL 8.8 MG/DL (8.8-10.2); CARBON DIOXIDE LEVEL 27 MEQ/L (21-32); CHLORIDE LEVEL 107 MEQ/L (98-107); CHOLESTEROL LEVEL 200 MG/DL (<200); CHOLESTEROL RISK RATIO 2.222 (<5); CREATININE FOR GFR 0.78 MG/DL (0.55-1.30); GLOMERULAR FILTRATION RATE > 60.0 (>45); GLUCOSE, FASTING 97 MG/DL (70-100); HDL CHOLESTEROL 90 MG/DL (>40); LDL CHOLESTEROL 98 MG/DL (<100); NON-HDL-C 110 MG/DL; POTASSIUM SERUM 4.4 MEQ/L (3.5-5.1); SODIUM LEVEL 141 MEQ/L (136-145); TOTAL PROTEIN 7.4 GM/DL (6.4-8.2); TRIGLYCERIDES LEVEL 59 MG/DL (<150)
== END ==
LOC: M SFHCLACO 08:16
PROVIDERS: ATTEND Physician Assistant
DX: E78.2 Mixed hyperlipidemia (principal)

== ENCOUNTER → 2019-08-10 | Outpatient (REF) | payer OTHER ==
[2019-08-10 12:51] LABS: ALBUMIN 3.9 GM/DL (3.2-5.2); ALT/SGPT 25 U/L (12-78); BILIRUBIN,TOTAL 0.4 MG/DL (0.2-1.0); BLOOD UREA NITROGEN 23 MG/DL (7-18); CALCIUM LEVEL 9.7 MG/DL (8.8-10.2); CARBON DIOXIDE LEVEL 30 MEQ/L (21-32); CHLORIDE LEVEL 110 MEQ/L (98-107); CHOLESTEROL LEVEL 223 MG/DL (<200); CHOLESTEROL RISK RATIO 3.328 (<5); CREATININE FOR GFR 0.82 MG/DL (0.55-1.30); GLOMERULAR FILTRATION RATE > 60.0 (>45); GLUCOSE, FASTING 94 MG/DL (70-100); HDL CHOLESTEROL 67 MG/DL (>40); LDL CHOLESTEROL 143 MG/DL (<100); NON-HDL-C 156 MG/DL; POTASSIUM SERUM 4.9 MEQ/L (3.5-5.1); SODIUM LEVEL 143 MEQ/L (136-145); TOTAL PROTEIN 7.1 GM/DL (6.4-8.2); TRIGLYCERIDES LEVEL 64 MG/DL (<150)
== END ==
LOC: M SFHCADAM 08:19
PROVIDERS: ATTEND Physician Assistant
DX: E78.2 Mixed hyperlipidemia (principal); Z68.31 Body mass index [BMI] 31.0-31.9, adult

== ENCOUNTER → 2020-01-31 | Outpatient (REF) | payer OTHER ==
[~2020-01-31] MED LIST changes: +CYCL-707 PO; -CYCL10TA PO; -SIMV40TA2 PO; +SIMV40TA20 PO
[2020-01-31 13:36] LABS: ALBUMIN 3.8 GM/DL (3.2-5.2); ALT/SGPT 30 U/L (12-78); BILIRUBIN,TOTAL 0.4 MG/DL (0.2-1.0); BLOOD UREA NITROGEN 16 MG/DL (7-18); CALCIUM LEVEL 8.9 MG/DL (8.8-10.2); CARBON DIOXIDE LEVEL 28 MEQ/L (21-32); CHLORIDE LEVEL 108 MEQ/L (98-107); CHOLESTEROL LEVEL 213 MG/DL (<200); CREATININE FOR GFR 0.89 MG/DL (0.55-1.30); GLOMERULAR FILTRATION RATE > 60.0 (>45); GLUCOSE, FASTING 88 MG/DL (70-100); HDL CHOLESTEROL 75 MG/DL (>40); LDL CHOLESTEROL 123 MG/DL (<100); NON-HDL-C 138 MG/DL; SODIUM LEVEL 143 MEQ/L (136-145); TOTAL PROTEIN 7.3 GM/DL (6.4-8.2); TRIGLYCERIDES LEVEL 76 MG/DL (<150)
== END ==
LOC: M SFHCADAM 08:48
PROVIDERS: ATTEND Physician Assistant
DX: E78.2 Mixed hyperlipidemia (principal); Z68.31 Body mass index [BMI] 31.0-31.9, adult

== ENCOUNTER → 2020-08-02 | Outpatient (REF) | payer OTHER ==
[2020-08-02 14:07] LABS: ALBUMIN 3.7 GM/DL (3.2-5.2); ALT/SGPT 20 U/L (12-78); BILIRUBIN,TOTAL 0.4 MG/DL (0.2-1.0); BLOOD UREA NITROGEN 16 MG/DL (7-18); CALCIUM LEVEL 8.9 MG/DL (8.8-10.2); CARBON DIOXIDE LEVEL 29 MEQ/L (21-32); CHLORIDE LEVEL 108 MEQ/L (98-107); CHOLESTEROL LEVEL 204 MG/DL (<200); CHOLESTEROL RISK RATIO 2.649 (<5); CREATININE FOR GFR 0.84 MG/DL (0.55-1.30); GLOMERULAR FILTRATION RATE > 60.0 (>45); GLUCOSE, FASTING 87 MG/DL (70-100); HDL CHOLESTEROL 77 MG/DL (>40); LDL CHOLESTEROL 117 MG/DL (<100); NON-HDL-C 127 MG/DL; POTASSIUM SERUM 4.2 MEQ/L (3.5-5.1); SODIUM LEVEL 142 MEQ/L (136-145); TOTAL PROTEIN 6.6 GM/DL (6.4-8.2); TRIGLYCERIDES LEVEL 52 MG/DL (<150)
== END ==
LOC: M SFHCADAM 08:04
PROVIDERS: ATTEND Physician Assistant
DX: E78.2 Mixed hyperlipidemia (principal); E66.9 Obesity, unspecified; Z68.31 Body mass index [BMI] 31.0-31.9, adult

== ENCOUNTER → 2020-11-09 | Outpatient (REF) | payer OTHER ==
[2020-11-09 17:18] LABS: BASO # 0.1 10^3/uL (0.0-0.2); BASO % 0.8 % (0.0-1.0); EOS # 0.3 10^3/uL (0.0-0.5); EOS % 4.3 % (0.0-3.0); HEMATOCRIT 40.6 % (36.0-47.0); LYMPH # 1.9 10^3/uL (1.5-5.0); LYMPH % 30.4 % (24.0-44.0); MEAN CORPUSCULAR VOLUME 90.6 fl (80.0-96.0); MONO # 0.5 10^3/uL (0.0-0.8); MONO % 7.4 % (0.0-5.0); NEUTROPHILS # 3.6 10^3/uL (1.5-8.5); NEUTROPHILS % 56.8 % (36.0-66.0); PLATELET COUNT, AUTOMATED 388 10^3/uL (150-450); RED BLOOD COUNT 4.48 10^6/uL (4.00-5.40); WHITE BLOOD COUNT 6.3 10^3/uL (4.0-10.0)
[2020-11-09 17:23] LABS: ALBUMIN 3.5 GM/DL (3.2-5.2); ALT/SGPT 19 U/L (12-78); BILIRUBIN,TOTAL 0.2 MG/DL (0.2-1.0); BLOOD UREA NITROGEN 15 MG/DL (7-18); CALCIUM LEVEL 9.3 MG/DL (8.8-10.2); CARBON DIOXIDE LEVEL 27 MEQ/L (21-32); CHLORIDE LEVEL 105 MEQ/L (98-107); CREATININE FOR GFR 0.77 MG/DL (0.55-1.30); GLOMERULAR FILTRATION RATE > 60.0 (>45); GLUCOSE, FASTING 80 MG/DL (70-100); POTASSIUM SERUM 4.4 MEQ/L (3.5-5.1); SODIUM LEVEL 139 MEQ/L (136-145); TOTAL PROTEIN 6.7 GM/DL (6.4-8.2)
== END ==
LOC: M SFHCADAM 13:19
PROVIDERS: ATTEND Physician Assistant Medical
DX: K11.20 Sialoadenitis, unspecified (principal)

== ENCOUNTER → 2020-11-30 | Outpatient (REF) | payer OTHER | LOC: M LAB REF 16:39 | PROVIDERS: ATTEND Otolaryngology | DX: R22.1 Localized swelling, mass and lump, neck (principal) ==

== ENCOUNTER → 2021-02-19 | Outpatient (REF) | payer OTHER ==
[2021-02-19 15:01] LABS: ALBUMIN 4.1 GM/DL (3.2-5.2); ALT/SGPT 22 U/L (12-78); BILIRUBIN,TOTAL 0.2 MG/DL (0.2-1.0); BLOOD UREA NITROGEN 23 MG/DL (7-18); CALCIUM LEVEL 10.1 MG/DL (8.8-10.2); CARBON DIOXIDE LEVEL 27 MEQ/L (21-32); CHLORIDE LEVEL 107 MEQ/L (98-107); CHOLESTEROL LEVEL 259 MG/DL (<200); CHOLESTEROL RISK RATIO 3.083 (<5); CREATININE FOR GFR 0.84 MG/DL (0.55-1.30); GLOMERULAR FILTRATION RATE > 60.0 (>45); GLUCOSE, FASTING 91 MG/DL (70-100); HDL CHOLESTEROL 84 MG/DL (>40); LDL CHOLESTEROL 160 MG/DL (<100); NON-HDL-C 175 MG/DL; POTASSIUM SERUM 4.6 MEQ/L (3.5-5.1); SODIUM LEVEL 142 MEQ/L (136-145); TOTAL PROTEIN 7.2 GM/DL (6.4-8.2); TRIGLYCERIDES LEVEL 77 MG/DL (<150)
== END ==
LOC: M SFHCADAM 08:13
PROVIDERS: ATTEND Physician Assistant
DX: E78.2 Mixed hyperlipidemia (principal); Z68.31 Body mass index [BMI] 31.0-31.9, adult

== ENCOUNTER → 2021-08-21 | Outpatient (REF) | payer OTHER ==
[2021-08-21 14:51] LABS: ALBUMIN 3.6 GM/DL (3.2-5.2); ALT/SGPT 27 U/L (12-78); BILIRUBIN,TOTAL 0.4 MG/DL (0.2-1.0); BLOOD UREA NITROGEN 19 MG/DL (7-18); CALCIUM LEVEL 9.1 MG/DL (8.8-10.2); CARBON DIOXIDE LEVEL 28 MEQ/L (21-32); CHLORIDE LEVEL 108 MEQ/L (98-107); CHOLESTEROL LEVEL 235 MG/DL (<200); CHOLESTEROL RISK RATIO 2.611 (<5); CREATININE FOR GFR 0.78 MG/DL (0.55-1.30); GLOMERULAR FILTRATION RATE > 60.0 (>45); GLUCOSE, FASTING 87 MG/DL (70-100); HDL CHOLESTEROL 90 MG/DL (>40); LDL CHOLESTEROL 133 MG/DL (<100); NON-HDL-C 145 MG/DL; POTASSIUM SERUM 4.6 MEQ/L (3.5-5.1); SODIUM LEVEL 140 MEQ/L (136-145); TOTAL PROTEIN 6.6 GM/DL (6.4-8.2); TRIGLYCERIDES LEVEL 58 MG/DL (<150)
== END ==
LOC: M SFHCADAM 08:20
PROVIDERS: ATTEND Physician Assistant
DX: E78.2 Mixed hyperlipidemia (principal)

== ENCOUNTER → 2022-02-20 | Outpatient (REF) | payer MEDICARE ==
[2022-02-20 17:07] LABS: ALT/SGPT 23 U/L (12-78); BILIRUBIN,TOTAL 0.4 MG/DL (0.2-1.0); BLOOD UREA NITROGEN 23 MG/DL (7-18); CALCIUM LEVEL 9.6 MG/DL (8.8-10.2); CARBON DIOXIDE LEVEL 29 MEQ/L (21-32); CHLORIDE LEVEL 108 MEQ/L (98-107); CHOLESTEROL LEVEL 213 MG/DL (<200); CHOLESTEROL RISK RATIO 2.366 (<5); CREATININE FOR GFR 0.75 MG/DL (0.55-1.30); GLOMERULAR FILTRATION RATE > 60.0 (>45); GLUCOSE, FASTING 99 MG/DL (70-100); HDL CHOLESTEROL 90 MG/DL (>40); LDL CHOLESTEROL 113 MG/DL (<100); NON-HDL-C 123 MG/DL; POTASSIUM SERUM 4.7 MEQ/L (3.5-5.1); SODIUM LEVEL 141 MEQ/L (136-145); TOTAL PROTEIN 6.8 GM/DL (6.4-8.2); TRIGLYCERIDES LEVEL 51 MG/DL (<150)
== END ==
LOC: M SFHCADAM 07:58
PROVIDERS: ATTEND Physician Assistant
DX: E78.2 Mixed hyperlipidemia (principal)

== ENCOUNTER → 2022-03-15 | Outpatient (CLI) | payer MEDICARE ==
[2022-03-15 12:19] LABS: ALBUMIN 3.8 GM/DL (3.2-5.2); ALT/SGPT 19 U/L (12-78); BILIRUBIN,TOTAL 0.4 MG/DL (0.2-1.0); BLOOD UREA NITROGEN 14 MG/DL (7-18); CARBON DIOXIDE LEVEL 31 MEQ/L (21-32); CHLORIDE LEVEL 108 MEQ/L (98-107); CREATININE FOR GFR 0.89 MG/DL (0.55-1.30); FREE T4 0.78 NG/DL (0.76-1.46); GLOMERULAR FILTRATION RATE > 60.0 (>45); GLUCOSE, FASTING 82 MG/DL (70-100); NT-PRO BNP 61 PG/ML (<125); POTASSIUM SERUM 4.2 MEQ/L (3.5-5.1); SODIUM LEVEL 140 MEQ/L (136-145); TOTAL PROTEIN 6.9 GM/DL (6.4-8.2)
== END ==
LOC: M PLALAB 10:03
PROVIDERS: ATTEND Family Medicine
DX: R60.9 Edema, unspecified (principal)

== ENCOUNTER 2022-03-16 11:57 | Emergency (ER) | payer MEDICARE ==
[~2022-03-16] VITALS: Ht 167.6 cm; Wt 79.5 kg
[2022-03-16 11:58] VITALS: BP 126/81
== END 2022-03-16 13:57 | disposition home or self-care (01) ==
LOC: M ED 11:57
DX: R22.41 Localized swelling, mass and lump, right lower limb (principal); M79.672 Pain in left foot; G89.29 Other chronic pain; E78.5 Hyperlipidemia, unspecified; Z79.899 Other long term (current) drug therapy; Z88.8 Allergy status to other drugs, medicaments and biological substances

== ENCOUNTER → 2022-04-04 | Outpatient (CLI) | payer MEDICARE | LOC: M RAD 10:39 | PROVIDERS: ATTEND Family Medicine | DX: M79.89 Other specified soft tissue disorders (principal) ==

== ENCOUNTER → 2022-07-24 | Outpatient (REF) | payer MEDICARE ==
[2022-07-24 14:10] LABS: ALBUMIN 3.8 GM/DL (3.2-5.2); ALT/SGPT 20 U/L (12-78); BILIRUBIN,TOTAL 0.4 MG/DL (0.2-1.0); BLOOD UREA NITROGEN 20 MG/DL (7-18); CALCIUM LEVEL 9.4 MG/DL (8.8-10.2); CARBON DIOXIDE LEVEL 28 MEQ/L (21-32); CHLORIDE LEVEL 109 MEQ/L (98-107); CHOLESTEROL LEVEL 198 MG/DL (<200); CHOLESTEROL RISK RATIO 2.444 (<5); CREATININE FOR GFR 0.96 MG/DL (0.55-1.30); GLOMERULAR FILTRATION RATE > 60.0 (>45); GLUCOSE, FASTING 96 MG/DL (70-100); HDL CHOLESTEROL 81 MG/DL (>40); LDL CHOLESTEROL 104 MG/DL (<100); NON-HDL-C 117 MG/DL; POTASSIUM SERUM 4.6 MEQ/L (3.5-5.1); SODIUM LEVEL 142 MEQ/L (136-145); TOTAL PROTEIN 7.1 GM/DL (6.4-8.2); TRIGLYCERIDES LEVEL 66 MG/DL (<150)
== END ==
LOC: M SFHCADAM 08:11
PROVIDERS: ATTEND Physician Assistant
DX: E78.2 Mixed hyperlipidemia (principal)

== ENCOUNTER → 2022-07-31 | Outpatient (CLI) | payer MEDICARE ==
[~2022-07-31] MED LIST changes: +ALPR0.25; +FLOM0.4C39 PO; +MELO15TA28
== END ==
LOC: M ADAMS 10:39
PROVIDERS: ATTEND Physician Assistant
DX: M25.552 Pain in left hip (principal); F11.90 Opioid use, unspecified, uncomplicated; M25.852 Other specified joint disorders, left hip

== ENCOUNTER 2022-08-01 15:13 | Emergency (ER) | payer MEDICARE ==
[~2022-08-01 15:13] MED LIST changes: -ALPR0.25; -FLOM0.4C39 PO; -MELO15TA28
[2022-08-01] MEDS ORDERED: MELO15TA28 (15:55)
[2022-08-01] MEDS ORDERED: ALPR0.25 (15:55)
[2022-08-01] MEDS ORDERED: HYDR-3713 (15:55)
[2022-08-01 16:36] LABS: BASO # 0.1 10^3/uL (0.0-0.2); BASO % 0.4 % (0.0-1.0); EOS # 0.1 10^3/uL (0.0-0.5); EOS % 0.9 % (0.0-3.0); HEMATOCRIT 41.1 % (36.0-47.0); HEMOGLOBIN 13.8 g/dl (12.0-15.5); MEAN CORPUSCULAR HEMOGLOBIN 30.5 pg (27.0-33.0); MEAN CORPUSCULAR HGB CONC 33.6 g/dl (32.0-36.5); MEAN CORPUSCULAR VOLUME 90.7 fl (80.0-96.0); MONO # 0.5 10^3/uL (0.0-0.8); MONO % 4.1 % (2.0-8.0); NEUTROPHILS % 86.1 % (36.0-66.0); PLATELET COUNT, AUTOMATED 306 10^3/uL (150-450); RED BLOOD COUNT 4.53 10^6/uL (4.00-5.40); WHITE BLOOD COUNT 12.8 10^3/uL (4.0-10.0)
[2022-08-01 17:13] LABS: ALBUMIN 3.9 GM/DL (3.2-5.2); BILIRUBIN,DIRECT 0.2 MG/DL (0.0-0.2); BILIRUBIN,TOTAL 0.2 MG/DL (0.2-1.0); CALCIUM LEVEL 9.4 MG/DL (8.8-10.2); CREATININE FOR GFR 1.14 MG/DL (0.55-1.30); GLOMERULAR FILTRATION RATE 50.8 (>45); POTASSIUM SERUM 4.2 MEQ/L (3.5-5.1); TOTAL PROTEIN 7.2 GM/DL (6.4-8.2)
[2022-08-01] MEDS ORDERED: FLOM0.4C39 PO (18:54)
[2022-08-01 19:10] VITALS: BP 153/75
== END 2022-08-01 19:12 | disposition home or self-care (01) ==
LOC: M ED 15:13
DX: N20.2 Calculus of kidney with calculus of ureter (principal); E78.5 Hyperlipidemia, unspecified; K57.12 Diverticulitis of small intestine without perforation or abscess without bleeding; M48.061 Spinal stenosis, lumbar region without neurogenic claudication; Z88.6 Allergy status to analgesic agent

== ENCOUNTER → 2022-08-16 | Outpatient (CLI) | payer MEDICARE ==
[~2022-08-16] MED LIST changes: +ALPR0.25; +FLOM0.4C39 PO; +MELO15TA28
== END ==
LOC: M SOG 08:13
PROVIDERS: ATTEND Orthopaedic Surgery Adult Reconstructive Orthopaedic Surgery
DX: M25.552 Pain in left hip (principal); M16.12 Unilateral primary osteoarthritis, left hip

== ENCOUNTER → 2022-08-30 | Outpatient (CLI) | payer MEDICARE | LOC: M PLAIMG 14:02 | PROVIDERS: ATTEND Orthopaedic Surgery Adult Reconstructive Orthopaedic Surgery | DX: M16.32 Unilateral osteoarthritis resulting from hip dysplasia, left hip (principal) ==

== ENCOUNTER 2022-12-30 08:49 | Outpatient (RCR) | payer MEDICARE | END 2023-01-17 | LOC: M PT 08:49 | PROVIDERS: ATTEND Orthopaedic Surgery | DX: M16.12 Unilateral primary osteoarthritis, left hip (principal) ==

== ENCOUNTER → 2023-01-27 | Outpatient (CLI) | payer MEDICARE ==
[~2023-01-27] MED LIST changes: -ALPR0.25; +ALPR0.25 PO; +HYDR-3713 PO; +LEVOTAB10 PO; -MELO15TA28; +MELO15TA28 PO; +MULT-90 PO; +VITA100066 PO
== END ==
LOC: M RAD 10:03
PROVIDERS: ATTEND Orthopaedic Surgery
DX: M16.12 Unilateral primary osteoarthritis, left hip (principal); M85.652 Other cyst of bone, left thigh

== ENCOUNTER → 2023-02-04 | Outpatient (REF) | payer MEDICARE ==
[2023-02-04 16:30] LABS: ALBUMIN 3.9 G/DL (3.2-5.2); ALKALINE PHOSPHATASE 54 U/L (46-116); ALT/SGPT 17 U/L (7.0-40); AST/SGOT 18 U/L (<34); BILIRUBIN,TOTAL 0.3 MG/DL (0.3-1.2); BLOOD UREA NITROGEN 22 MG/DL (9-23); CALCIUM LEVEL 9.5 MG/DL (8.3-10.6); CARBON DIOXIDE LEVEL 28 MMOL/L (20-31); CHLORIDE LEVEL 108 MMOL/L (98-107); CREATININE FOR GFR 0.89 MG/DL (0.55-1.30); GLOMERULAR FILTRATION RATE > 60.0 (>45); GLUCOSE, FASTING 122 MG/DL (74-106); POTASSIUM SERUM 4.1 MMOL/L (3.5-5.1); SODIUM LEVEL 142 MMOL/L (136-145); TOTAL PROTEIN 6.7 G/DL (5.7-8.2)
[2023-02-04 16:41] LABS: BASO # 0.1 10^3/uL (0.0-0.2); BASO % 0.8 % (0.0-1.0); EOS # 0.2 10^3/uL (0.0-0.5); EOS % 2.4 % (0.0-3.0); HEMATOCRIT 42.9 % (36.0-47.0); HEMOGLOBIN 14.2 g/dl (12.0-15.5); LYMPH # 1.6 10^3/uL (1.5-5.0); LYMPH % 21.3 % (24.0-44.0); MEAN CORPUSCULAR HEMOGLOBIN 30.7 pg (27.0-33.0); MEAN CORPUSCULAR HGB CONC 33.1 g/dl (32.0-36.5); MEAN CORPUSCULAR VOLUME 92.7 fl (80.0-96.0); MONO # 0.5 10^3/uL (0.0-0.8); MONO % 6.2 % (2.0-8.0); NEUTROPHILS # 5.1 10^3/uL (1.5-8.5); NEUTROPHILS % 68.9 % (36.0-66.0); PLATELET COUNT, AUTOMATED 325 10^3/uL (150-450); RED BLOOD COUNT 4.63 10^6/uL (4.00-5.40); WHITE BLOOD COUNT 7.4 10^3/uL (4.0-10.0)
== END ==
LOC: M SFHCADAM 14:20
PROVIDERS: ATTEND Physician Assistant Medical
DX: Z01.818 Encounter for other preprocedural examination (principal); M16.12 Unilateral primary osteoarthritis, left hip

== ENCOUNTER 2023-02-11 06:13 | Observation (INO) | payer MEDICARE ==
[~2023-02-11] VITALS: Ht 165.1 cm; Wt 79.4 kg
[2023-02-11] VITALS (8 sets, daily range): BP systolic 123–143; BP diastolic 67–80
[~2023-02-11 06:13] MED LIST changes: +ROPIVA 100MG/KETOR 15MG/EPINEPHRINE 0.3MG IN NS 50ML SYRINGE PA ONE; +TRANEXAMIC ACID INJection 1,000 MG in NS 100 ML IV ONE; +ceFAZolin SOD 2 GM in IV 1 EA IV ONE; +oxyCODONE 10 MG CR TAB PO ONE
[2023-02-11] MEDS ORDERED: LR 1,000 ML IV SCH ×2 (06:40→11:35)
[2023-02-11] MEDS ORDERED: oxyCODONE 5MG TAB PO ONE (06:45)
[2023-02-11] MEDS ORDERED: ACETAMINOPHEN 1000MG 100ML IV BAG As Ordered ONE (07:06)
[2023-02-11] MEDS ORDERED: propofoL 200 MG/20 ML VIAL As Ordered ONE ×2 (07:06→07:26)
[2023-02-11] MEDS ORDERED: ROCURONIUM BROMIDE 50MG/5ML VIAL As Ordered ONE (07:06)
[2023-02-11] MEDS ORDERED: SUGAMMADEX SODIUM 500 MG/5 ML VIAL (BRIDION) As Ordered ONE (07:06)
[2023-02-11] MEDS ORDERED: KETOROLAC 60MG 2ML VIAL As Ordered ONE (07:07)
[2023-02-11] MEDS ORDERED: fentaNYL 100 MCG/2 ML INJECTION As Ordered ONE (07:07)
[2023-02-11] MEDS ORDERED: ONDANSETRON 4MG 2ML VIAL As Ordered ONE (07:07)
[2023-02-11] MEDS ORDERED: MIDAZOLAM INJ 2MG/2ML VIAL As Ordered ONE (07:08)
[2023-02-11] MEDS ORDERED: LIDOCAINE 2% 100MG/5ML SDV (FOR ANES.) As Ordered ONE (07:11)
[2023-02-11] MEDS ORDERED: BUPIVACAINE HCL 0.25% 30ML VIAL As Ordered ONE (07:12)
[2023-02-11] MEDS ORDERED: ceFAZolin 1GM VIAL As Ordered ONE (07:12)
[2023-02-11] MEDS ORDERED: BUPIVACAINE HCL 0.5% 30ML VIAL As Ordered ONE (07:13)
[2023-02-11] MEDS ORDERED: MUPI2OI TOP (07:25)
[2023-02-11] MEDS ORDERED: TEMO0.0517 TOP (07:25)
[2023-02-11] MEDS ORDERED: HOME MED LIST COMPLETE! XX SCH (07:30)
[2023-02-11] MEDS ORDERED: TRANEXAMIC ACID 100 MG/ML 10ML VIAL As Ordered ONE (10:26)
[2023-02-11] MEDS ORDERED: VANCOMYCIN 1000MG/20ML VIAL As Ordered ONE (10:26)
[2023-02-11] MEDS ORDERED: SENNA 8.6 MG TAB (SENOKOT) PO PRN (11:05)
[2023-02-11] MEDS: LR 1,000 ML IV SCH ×2 (11:05→20:49)
[2023-02-11] MEDS ORDERED: ONDANSETRON 4MG 2ML VIAL IV PRN ×2 (11:05→11:35)
[2023-02-11] MEDS ORDERED: oxyCODONE 5MG TAB PO PRN ×2 (11:05→11:35)
[2023-02-11] MEDS ORDERED: HYDROMORPHONE HCL 0.5 MG/ 0.5 ML SYRINGE IV PRN (11:35)
[2023-02-11] MEDS ORDERED: fentaNYL 100 MCG/2 ML INJECTION IV PRN (11:35)
[2023-02-11] MEDS: FERROUS SULFATE 325MG TAB PO SCH (12:34)
[2023-02-11] MEDS: ASCORBIC ACID 500 MG TAB PO SCH (12:34)
[2023-02-11] MEDS: DOCUSATE SODIUM 100MG CAPSULE PO SCH ×2 (12:34→21:33)
[2023-02-11] MEDS ORDERED: ALPRAZolam 0.25 MG TAB PO PRN (14:15)
[2023-02-11] MEDS: ceFAZolin SOD 2 GM in IV 1 EA IV SCH (15:06)
[2023-02-11] MEDS: ACETAMINOPHEN TAB 650MG DOSE (2X325MG) PO SCH (17:00)
[2023-02-11] MEDS: oxyCODONE 5MG TAB PO PRN ×2 (17:01→21:32)
[2023-02-11] MEDS ORDERED: SIMVASTATIN 40 MG TAB PO SCH (21:00)
[2023-02-12] MEDS: ceFAZolin SOD 2 GM in IV 1 EA IV SCH (00:39)
[2023-02-12] MEDS: oxyCODONE 5MG TAB PO PRN ×3 (01:40→13:37)
[2023-02-12 02:00] VITALS: BP 127/69
[2023-02-12] MEDS: ACETAMINOPHEN TAB 650MG DOSE (2X325MG) PO SCH ×3 (04:51→12:00)
[2023-02-12 06:00] VITALS: BP 117/68
[2023-02-12] MEDS: LR 1,000 ML IV SCH (06:16)
[2023-02-12 06:20] LABS: HEMATOCRIT 34.2 % (36.0-47.0); HEMOGLOBIN 11.7 g/dl (12.0-15.5); MEAN CORPUSCULAR HEMOGLOBIN 31.3 pg (27.0-33.0); MEAN CORPUSCULAR HGB CONC 34.2 g/dl (32.0-36.5); MEAN CORPUSCULAR VOLUME 91.4 fl (80.0-96.0); PLATELET COUNT, AUTOMATED 225 10^3/uL (150-450); RED BLOOD COUNT 3.74 10^6/uL (4.00-5.40); WHITE BLOOD COUNT 11.4 10^3/uL (4.0-10.0)
[2023-02-12 06:45] LABS: ALBUMIN 3.2 G/DL (3.2-5.2); ALKALINE PHOSPHATASE 41 U/L (46-116); ALT/SGPT 22 U/L (7.0-40); AST/SGOT 27 U/L (<34); BILIRUBIN,TOTAL 0.5 MG/DL (0.3-1.2); BLOOD UREA NITROGEN 14 MG/DL (9-23); CALCIUM LEVEL 8.5 MG/DL (8.3-10.6); CARBON DIOXIDE LEVEL 26 MMOL/L (20-31); CHLORIDE LEVEL 107 MMOL/L (98-107); CREATININE FOR GFR 0.79 MG/DL (0.55-1.30); GLOMERULAR FILTRATION RATE > 60.0 (>45); GLUCOSE, FASTING 104 MG/DL (74-106); PHOSPHORUS LEVEL 3.5 MG/DL (2.4-5.1); POTASSIUM SERUM 4.6 MMOL/L (3.5-5.1); SODIUM LEVEL 140 MMOL/L (136-145); TOTAL PROTEIN 5.6 G/DL (5.7-8.2)
[2023-02-12 06:48] LABS: INR 0.94; PROTHROMBIN TIME 12.8 SECONDS (12.5-14.5)
[2023-02-12] MEDS: ASCORBIC ACID 500 MG TAB PO SCH (09:26)
[2023-02-12] MEDS: DOCUSATE SODIUM 100MG CAPSULE PO SCH (09:26)
[2023-02-12] MEDS: FERROUS SULFATE 325MG TAB PO SCH (09:26)
[2023-02-12] MEDS ORDERED: ASPI81TAEC PO (09:47)
[2023-02-12] MEDS ORDERED: XARE10TA PO (09:47)
[2023-02-12] MEDS ORDERED: ACET1TAB55 PO (09:47)
[2023-02-12] MEDS ORDERED: HYDR-3713 PO (09:47)
[2023-02-12 10:00] VITALS: BP 158/79
[2023-02-12] MEDS ORDERED: RIVAROXABAN 10MG TAB (XARELTO) PO SCH (18:00)
[2023-02-26] MEDS ORDERED: ASPIRIN 81MG ENTERIC TABLET PO SCH (09:00)
== END 2023-02-12 14:00 | disposition home or self-care (01) ==
LOC: M SDC 06:13 → M MS5PR 11:01
PROVIDERS: ADMIT Orthopaedic Surgery; ATTEND Orthopaedic Surgery
DX: M16.12 Unilateral primary osteoarthritis, left hip (principal); E78.5 Hyperlipidemia, unspecified; K21.9 Gastro-esophageal reflux disease without esophagitis; F41.9 Anxiety disorder, unspecified; Z87.891 Personal history of nicotine dependence; L30.9 Dermatitis, unspecified; Z79.899 Other long term (current) drug therapy; Z88.8 Allergy status to other drugs, medicaments and biological substances
CPT/HCPCS: 27130; 36415; 72170; 76000; 80053; 80069; 85027; 85610; 87635; 96365; 96366; 97110; 97116; 97161; 97165; 97530; C1713; C1776; G0378; J0131; J0690; J1100; J2250; J2405; J3010

== ENCOUNTER → 2023-02-26 | Outpatient (CLI) | payer MEDICARE ==
[~2023-02-26] MED LIST changes: +ACET1TAB55 PO; +ASPI81TAEC PO; +MUPI2OI TOP; -ROPIVA 100MG/KETOR 15MG/EPINEPHRINE 0.3MG IN NS 50ML SYRINGE PA ONE; +TEMO0.0517 TOP; -TRANEXAMIC ACID INJection 1,000 MG in NS 100 ML IV ONE; +XARE10TA PO; -ceFAZolin SOD 2 GM in IV 1 EA IV ONE; -oxyCODONE 10 MG CR TAB PO ONE
== END ==
LOC: M SOG 08:00
PROVIDERS: ATTEND Orthopaedic Surgery
DX: Z47.89 Encounter for other orthopedic aftercare (principal); Z96.642 Presence of left artificial hip joint

== ENCOUNTER → 2023-04-02 | Outpatient (CLI) | payer MEDICARE | LOC: M SOG 07:51 | PROVIDERS: ATTEND Orthopaedic Surgery | DX: Z47.1 Aftercare following joint replacement surgery (principal); Z96.642 Presence of left artificial hip joint ==

== ENCOUNTER → 2023-05-21 | Outpatient (REF) | payer MEDICARE | LOC: M SFHCADAM 18:50 | PROVIDERS: ATTEND Physician Assistant | DX: R79.89 Other specified abnormal findings of blood chemistry (principal); M79.675 Pain in left toe(s); G89.29 Other chronic pain; F51.04 Psychophysiologic insomnia; E78.2 Mixed hyperlipidemia; Z13.1 Encounter for screening for diabetes mellitus; Z53.9 Procedure and treatment not carried out, unspecified reason ==

== ENCOUNTER → 2023-07-03 | Outpatient (CLI) | payer MEDICARE | LOC: M SOG 08:40 | PROVIDERS: ATTEND Orthopaedic Surgery | DX: Z96.642 Presence of left artificial hip joint (principal) ==

== ENCOUNTER → 2023-08-25 | Outpatient (REF) | payer MEDICARE ==
[2023-08-25 13:15] LABS: BASO # 0.1 10^3/uL (0.0-0.2); BASO % 0.9 % (0.0-1.0); EOS # 0.3 10^3/uL (0.0-0.5); EOS % 4.6 % (0.0-3.0); HEMATOCRIT 44.5 % (36.0-47.0); HEMOGLOBIN 14.4 g/dl (12.0-15.5); LYMPH # 1.3 10^3/uL (1.5-5.0); LYMPH % 24.2 % (24.0-44.0); MEAN CORPUSCULAR HGB CONC 32.4 g/dl (32.0-36.5); MEAN CORPUSCULAR VOLUME 92.7 fl (80.0-96.0); MONO # 0.4 10^3/uL (0.0-0.8); MONO % 7.7 % (2.0-8.0); NEUTROPHILS # 3.4 10^3/uL (1.5-8.5); NEUTROPHILS % 62.2 % (36.0-66.0); PLATELET COUNT, AUTOMATED 293 10^3/uL (150-450); WHITE BLOOD COUNT 5.4 10^3/uL (4.0-10.0)
[2023-08-25 13:47] LABS: HEMOGLOBIN A1c 5.5 % (4.0-6.0)
[2023-08-25 13:51] LABS: ALBUMIN 3.6 G/DL (3.2-5.2); ALKALINE PHOSPHATASE 65 U/L (46-116); ALT/SGPT 18 U/L (7.0-40); AST/SGOT 18 U/L (<34); BILIRUBIN,TOTAL 0.3 MG/DL (0.3-1.2); BLOOD UREA NITROGEN 19 MG/DL (9-23); CALCIUM LEVEL 9.2 MG/DL (8.3-10.6); CARBON DIOXIDE LEVEL 27 MMOL/L (20-31); CHLORIDE LEVEL 105 MMOL/L (98-107); CHOLESTEROL LEVEL 187 MG/DL (<200); CHOLESTEROL RISK RATIO 2.64 (<5); CREATININE FOR GFR 0.78 MG/DL (0.55-1.30); FREE T4 0.74 NG/DL (0.89-1.76); GLOMERULAR FILTRATION RATE > 60.0 (>45); GLUCOSE, FASTING 91 MG/DL (74-106); HDL CHOLESTEROL 70.7 MG/DL (>40); LDL CHOLESTEROL 102.9 MG/DL (<100); NON-HDL-C 116.3 MG/DL; POTASSIUM SERUM 4.9 MMOL/L (3.5-5.1); SODIUM LEVEL 141 MMOL/L (136-145); THYROID STIMULATING HORMONE 22.842 uIU/ML (0.55-4.78); TOTAL PROTEIN 6.8 G/DL (5.7-8.2); TRIGLYCERIDES LEVEL 67 MG/DL (<150)
== END ==
LOC: M SFHCADAM 08:13
PROVIDERS: ATTEND Physician Assistant
DX: R79.89 Other specified abnormal findings of blood chemistry (principal); M79.675 Pain in left toe(s); G89.29 Other chronic pain; F51.04 Psychophysiologic insomnia; E78.2 Mixed hyperlipidemia; Z13.1 Encounter for screening for diabetes mellitus

== ENCOUNTER → 2023-09-04 | Outpatient (REF) | payer MEDICARE | LOC: M SFHCADAM 08:30 | PROVIDERS: ATTEND Physician Assistant | DX: E03.9 Hypothyroidism, unspecified (principal); Z79.899 Other long term (current) drug therapy ==

== ENCOUNTER → 2023-12-10 | Outpatient (REF) | payer MEDICARE ==
[2023-12-10 13:26] LABS: THYROID STIMULATING HORMONE 8.001 uIU/ML (0.55-4.78)
[2023-12-10 13:27] LABS: FREE T4 0.97 NG/DL (0.89-1.76)
== END ==
LOC: M SFHCADAM 10:34
PROVIDERS: ATTEND Physician Assistant
DX: E03.9 Hypothyroidism, unspecified (principal)

== ENCOUNTER → 2024-01-01 | Outpatient (CLI) | payer MEDICARE | LOC: M SOG 08:45 | PROVIDERS: ATTEND Orthopaedic Surgery | DX: Z47.1 Aftercare following joint replacement surgery (principal); Z96.642 Presence of left artificial hip joint ==

== ENCOUNTER → 2024-05-26 | Outpatient (REF) | payer MEDICARE ==
[2024-05-26 14:25] LABS: BASO % 0.7 % (0.0-1.0); EOS # 0.2 10^3/uL (0.0-0.5); EOS % 3.8 % (0.0-3.0); HEMATOCRIT 43.3 % (36.0-47.0); HEMOGLOBIN 13.9 g/dl (12.0-15.5); HEMOGLOBIN A1c 5.8 % (4.0-6.0); LYMPH # 1.5 10^3/uL (1.5-5.0); LYMPH % 25.7 % (24.0-44.0); MEAN CORPUSCULAR HEMOGLOBIN 30.1 pg (27.0-33.0); MEAN CORPUSCULAR HGB CONC 32.1 g/dl (32.0-36.5); MEAN CORPUSCULAR VOLUME 93.7 fl (80.0-96.0); MONO # 0.4 10^3/uL (0.0-0.8); MONO % 7.2 % (2.0-8.0); NEUTROPHILS # 3.6 10^3/uL (1.5-8.5); NEUTROPHILS % 62.4 % (36.0-66.0); PLATELET COUNT, AUTOMATED 291 10^3/uL (150-450); RED BLOOD COUNT 4.62 10^6/uL (4.00-5.40); WHITE BLOOD COUNT 5.7 10^3/uL (4.0-10.0)
[2024-05-26 14:43] LABS: ALBUMIN 3.9 G/DL (3.2-5.2); ALKALINE PHOSPHATASE 65 U/L (46-116); ALT/SGPT 23 U/L (7.0-40); AST/SGOT 16 U/L (<34); BILIRUBIN,TOTAL 0.3 MG/DL (0.3-1.2); BLOOD UREA NITROGEN 21 MG/DL (9-23); CALCIUM LEVEL 8.9 MG/DL (8.3-10.6); CARBON DIOXIDE LEVEL 31 MMOL/L (20-31); CHLORIDE LEVEL 107 MMOL/L (98-107); CHOLESTEROL LEVEL 196 MG/DL (<200); CHOLESTEROL RISK RATIO 2.76 (<5); CREATININE FOR GFR 0.89 MG/DL (0.55-1.30); GLOMERULAR FILTRATION RATE > 60.0 (>45); GLUCOSE, FASTING 91 MG/DL (74-106); LDL CHOLESTEROL 113.6 MG/DL (<100); POTASSIUM SERUM 4.6 MMOL/L (3.5-5.1); SODIUM LEVEL 140 MMOL/L (136-145); TOTAL PROTEIN 6.7 G/DL (5.7-8.2); TRIGLYCERIDES LEVEL 57 MG/DL (<150)
[2024-05-26 14:44] LABS: THYROID STIMULATING HORMONE 2.675 uIU/ML (0.55-4.78)
[2024-05-26 14:45] LABS: FREE T4 1.01 NG/DL (0.89-1.76)
== END ==
LOC: M SFHCADAM 08:12
PROVIDERS: ATTEND Physician Assistant
DX: E03.9 Hypothyroidism, unspecified (principal); G89.29 Other chronic pain; M16.12 Unilateral primary osteoarthritis, left hip; E78.2 Mixed hyperlipidemia; Z13.1 Encounter for screening for diabetes mellitus

== ENCOUNTER → 2024-06-03 | Outpatient (CLI) | payer MEDICARE | LOC: M RAD 11:43 | PROVIDERS: ATTEND Physician Assistant | DX: F17.211 Nicotine dependence, cigarettes, in remission (principal) ==

== ENCOUNTER → 2024-08-17 | Outpatient (CLI) | payer MEDICARE | LOC: M RAD 09:16 | PROVIDERS: ATTEND Physician Assistant | DX: Z12.2 Encounter for screening for malignant neoplasm of respiratory organs (principal); F17.211 Nicotine dependence, cigarettes, in remission ==

== ENCOUNTER → 2024-11-29 | Outpatient (REF) | payer MEDICARE ==
[2024-11-29 15:22] LABS: HEMOGLOBIN A1c 5.8 % (4.0-6.0)
[2024-11-29 15:39] LABS: ALBUMIN 3.8 G/DL (3.2-5.2); ALKALINE PHOSPHATASE 67 U/L (35-104); ALT/SGPT 26 U/L (7.0-40); AST/SGOT 23 U/L (<34); BILIRUBIN,TOTAL 0.4 MG/DL (0.3-1.2); BLOOD UREA NITROGEN 19 MG/DL (9-23); CALCIUM LEVEL 8.9 MG/DL (8.3-10.6); CARBON DIOXIDE LEVEL 28 MMOL/L (20-31); CHLORIDE LEVEL 108 MMOL/L (98-107); CHOLESTEROL LEVEL 183 MG/DL (<200); CHOLESTEROL RISK RATIO 2.22 (<5); CREATININE FOR GFR 0.78 MG/DL (0.55-1.30); GLOMERULAR FILTRATION RATE > 60.0 (>45); GLUCOSE, FASTING 91 MG/DL (74-106); HDL CHOLESTEROL 82.3 MG/DL (>40); LDL CHOLESTEROL 89.5 MG/DL (<100); NON-HDL-C 100.7 MG/DL; POTASSIUM SERUM 4.3 MMOL/L (3.5-5.1); SODIUM LEVEL 146 MMOL/L (136-145); TOTAL PROTEIN 6.9 G/DL (5.7-8.2); TRIGLYCERIDES LEVEL 56 MG/DL (<150)
== END ==
LOC: M SFHCADAM 08:40
PROVIDERS: ATTEND Physician Assistant
DX: I65.21 Occlusion and stenosis of right carotid artery (principal); R73.03 Prediabetes

== ENCOUNTER → 2024-12-07 | Outpatient (REF) | payer MEDICARE | LOC: M SFHCADAM 12:20 | PROVIDERS: ATTEND Physician Assistant | DX: Z79.899 Other long term (current) drug therapy (principal) ==

== ENCOUNTER → 2024-12-22 | Outpatient (CLI) | payer MEDICARE | LOC: M SOG 09:24 | PROVIDERS: ATTEND Orthopaedic Surgery | DX: Z47.1 Aftercare following joint replacement surgery (principal); Z96.642 Presence of left artificial hip joint ==

== ENCOUNTER → 2025-03-01 | Outpatient (REF) | payer MEDICARE ==
[~2025-03-01] MED LIST changes: -FLOM0.4C39 PO; +TAMS-18 PO
[2025-03-01 14:02] LABS: ALBUMIN 3.7 G/DL (3.2-5.2); BILIRUBIN,TOTAL 0.6 MG/DL (0.3-1.2); CALCIUM LEVEL 8.9 MG/DL (8.3-10.6); CHOLESTEROL RISK RATIO 2.08 (<5); CREATININE FOR GFR 0.82 MG/DL (0.55-1.30); GLOMERULAR FILTRATION RATE 77.9 (>45); HDL CHOLESTEROL 63.4 MG/DL (>40); NON-HDL-C 68.6 MG/DL; POTASSIUM SERUM 4.3 MMOL/L (3.5-5.1); TOTAL PROTEIN 6.5 G/DL (5.7-8.2)
[2025-03-01 14:08] LABS: HEMOGLOBIN A1c 5.7 % (4.0-6.0)
== END ==
LOC: M SFHCADAM 07:32
PROVIDERS: ATTEND Physician Assistant
DX: I65.21 Occlusion and stenosis of right carotid artery (principal); E78.2 Mixed hyperlipidemia; R73.03 Prediabetes; F17.211 Nicotine dependence, cigarettes, in remission; E03.9 Hypothyroidism, unspecified; F11.90 Opioid use, unspecified, uncomplicated

== ENCOUNTER → 2025-03-08 | Outpatient (REF) | payer MEDICARE ==
[2025-03-08 18:03] LABS: BASO # 0.1 10^3/uL (0.0-0.2); BASO % 0.7 % (0.0-1.0); EOS # 0.3 10^3/uL (0.0-0.5); EOS % 3.6 % (0.0-3.0); HEMATOCRIT 42.2 % (36.0-47.0); HEMOGLOBIN 13.7 g/dl (12.0-15.5); LYMPH # 1.8 10^3/uL (1.5-5.0); LYMPH % 26.6 % (24.0-44.0); MEAN CORPUSCULAR HEMOGLOBIN 30.2 pg (27.0-33.0); MEAN CORPUSCULAR HGB CONC 32.5 g/dl (32.0-36.5); MEAN CORPUSCULAR VOLUME 93.2 fl (80.0-96.0); MONO # 0.5 10^3/uL (0.0-0.8); MONO % 7.3 % (2.0-8.0); NEUTROPHILS # 4.3 10^3/uL (1.5-8.5); NEUTROPHILS % 61.8 % (36.0-66.0); PLATELET COUNT, AUTOMATED 277 10^3/uL (150-450); RED BLOOD COUNT 4.53 10^6/uL (4.00-5.40); WHITE BLOOD COUNT 6.9 10^3/uL (4.0-10.0)
[2025-03-08 18:29] LABS: THYROID STIMULATING HORMONE 4.709 uIU/ML (0.55-4.78)
[2025-03-08 18:30] LABS: FREE T4 1.13 NG/DL (0.89-1.76)
== END ==
LOC: M SFHCADAM 11:25
PROVIDERS: ATTEND Physician Assistant
DX: R06.09 Other forms of dyspnea (principal); F17.211 Nicotine dependence, cigarettes, in remission; I25.10 Atherosclerotic heart disease of native coronary artery without angina pectoris; R00.1 Bradycardia, unspecified

== ENCOUNTER → 2025-05-05 | Outpatient (CLI) | payer MEDICARE, MEDICAID | LOC: M RAD 15:04 | PROVIDERS: ATTEND Physician Assistant | DX: N28.89 Other specified disorders of kidney and ureter (principal) ==

== ENCOUNTER → 2025-05-27 | Outpatient (REF) | payer MEDICARE, MEDICAID ==
[2025-05-27 14:22] LABS: CALCIUM LEVEL 8.8 MG/DL (8.3-10.6); CARBON DIOXIDE LEVEL 28.0 MMOL/L (20-31); CHLORIDE LEVEL 106.0 MMOL/L (98-107); CREATININE FOR GFR 0.81 MG/DL (0.55-1.30); GLOMERULAR FILTRATION RATE 79.0 (>45); POTASSIUM SERUM 4.3 MMOL/L (3.5-5.1); SODIUM LEVEL 144.0 MMOL/L (136-145)
== END ==
LOC: M SFHCADAM 08:23
PROVIDERS: ATTEND Physician Assistant
DX: N28.89 Other specified disorders of kidney and ureter (principal)

== ENCOUNTER → 2025-06-15 | Outpatient (CLI) | payer MEDICARE, MEDICAID ==
[~2025-06-15] MED LIST changes: +ISOVUE-370 76% 100 ML VIAL ONE
== END ==
LOC: M PLAIMG 10:08
PROVIDERS: ATTEND Physician Assistant
DX: N28.89 Other specified disorders of kidney and ureter (principal); K44.9 Diaphragmatic hernia without obstruction or gangrene; J98.11 Atelectasis; N20.0 Calculus of kidney; K57.30 Diverticulosis of large intestine without perforation or abscess without bleeding; K42.9 Umbilical hernia without obstruction or gangrene; I70.0 Atherosclerosis of aorta
CPT/HCPCS: 74178; Q9967

== ENCOUNTER → 2025-07-14 | Outpatient (REF) | payer MEDICARE, MEDICAID ==
[~2025-07-14] MED LIST changes: -ISOVUE-370 76% 100 ML VIAL ONE
[2025-07-14 14:31] LABS: PLATELET COUNT, AUTOMATED 285 10^3/uL (150-450)
[2025-07-14 14:37] LABS: CALCIUM LEVEL 9.2 MG/DL (8.3-10.6); CARBON DIOXIDE LEVEL 30.0 MMOL/L (20-31); CHLORIDE LEVEL 106.0 MMOL/L (98-107); CREATININE FOR GFR 0.86 MG/DL (0.55-1.30); GLOMERULAR FILTRATION RATE 73.1 (>45); POTASSIUM SERUM 4.7 MMOL/L (3.5-5.1); SODIUM LEVEL 141.0 MMOL/L (136-145)
== END ==
LOC: M LABSMT 08:20
PROVIDERS: ATTEND Nurse Practitioner Family
DX: Z01.818 Encounter for other preprocedural examination (principal)

== ENCOUNTER → 2025-07-18 | Outpatient (REF) | payer MEDICARE, MEDICAID ==
[2025-07-18 13:11] LABS: INR 0.86
== END ==
LOC: M LABDRWAD 12:51
PROVIDERS: ATTEND Nurse Practitioner Family
DX: Z01.818 Encounter for other preprocedural examination (principal); Z86.39 Personal history of other endocrine, nutritional and metabolic disease

== ENCOUNTER → 2025-07-26 | Outpatient (CLI) | payer MEDICARE, MEDICAID ==
[~2025-07-26] MED LIST changes: +LEVO75TA4
== END ==
LOC: M ADAMS 11:13
PROVIDERS: ATTEND Physician Assistant
DX: Z01.818 Encounter for other preprocedural examination (principal)

== ENCOUNTER 2025-08-02 11:29 | Day surgery (SDC) | payer MEDICARE, MEDICAID ==
[~2025-08-02] VITALS: Ht 170.2 cm; Wt 73.2 kg
[~2025-08-02 11:29] MED LIST changes: -LEVO75TA4; +LEVO75TA4 PO; +LIDOCAINE 2% 100 MG/5 ML SDV (FOR ANES.) As Ordered ONE; +ONDANSETRON 4MG/2ML VIAL As Ordered ONE; +ROCURONIUM BROMIDE 50MG/5ML VIAL As Ordered ONE; +SUGAMMADEX SODIUM 200 MG/2 ML VIAL As Ordered ONE; +dexAMETHasone 4 MG/ML 1 ML VIAL As Ordered ONE
[2025-08-02] MEDS ORDERED: MIDAZOLAM INJ 2 MG/2 ML VIAL As Ordered ONE (12:01)
[2025-08-02] MEDS ORDERED: HYDR-4571 PO (12:40)
[2025-08-02] MEDS ORDERED: EZET10TA57 PO (12:40)
[2025-08-02] MEDS ORDERED: ATOR80TA59 PO (12:40)
[2025-08-02] MEDS ORDERED: ASPI81TA26 PO (12:41)
[2025-08-02] MEDS ORDERED: TACR0.1O TOP (12:42)
[2025-08-02] MEDS ORDERED: HOME MED LIST COMPLETE! XX SCH (12:45)
[2025-08-02] MEDS ORDERED: ACETAMINOPHEN 325 MG TAB PO PRN (12:55)
[2025-08-02] MEDS ORDERED: PERCOCET 5MG/325MG TAB PO PRN (12:55)
[2025-08-02] MEDS ORDERED: GLYCOPYRROLATE INJ 0.2 MG/ML 2 ML VIAL As Ordered ONE (13:13)
[2025-08-02] MEDS: ceFAZolin SOD 2 GM IV ONCE IV ONE (13:35)
[2025-08-02] MEDS ORDERED: HYDROmorphone HCL 2 MG/ML 1 ML VIAL As Ordered ONE (14:01)
[2025-08-02] MEDS: MANNITOL 25% 12.5 GM/50 ML VIAL As Ordered ONE (14:25)
[2025-08-02] MEDS ORDERED: hydrALAZINE 20 MG/ML 1 ML VIAL As Ordered ONE (14:48)
[2025-08-02] MEDS: LIDOCAINE 1% SDV 30 ML VIAL As Ordered ONE (16:03)
[2025-08-02] MEDS ORDERED: HYDROMORPHONE HCL 0.5 MG/0.5 ML SYRINGE IV PRN (16:40)
[2025-08-02] MEDS: ONDANSETRON 4MG/2ML VIAL IV PRN (16:46)
[2025-08-02 16:52] LABS: PLATELET COUNT, AUTOMATED 294 10^3/uL (150-450)
[2025-08-02 17:13] LABS: CALCIUM LEVEL 8.8 MG/DL (8.3-10.6); CARBON DIOXIDE LEVEL 23.0 MMOL/L (20-31); CHLORIDE LEVEL 105.0 MMOL/L (98-107); CREATININE FOR GFR 0.88 MG/DL (0.55-1.30); GLOMERULAR FILTRATION RATE 71.1 (>45); POTASSIUM SERUM 4.1 MMOL/L (3.5-5.1); SODIUM LEVEL 139.0 MMOL/L (136-145)
[2025-08-02 18:00] VITALS: BP 100/60; TEMP 97; O2SAT 95
[2025-08-02 18:30] VITALS: BP 107/59; TEMP 97.5; O2SAT 96
[2025-08-02] MEDS: NS (Normal Saline) 0.9% 1,000 ML IV SCH (18:40)
[2025-08-02 19:00] VITALS: BP 108/58; TEMP 97.5; O2SAT 95
[2025-08-02 19:51] VITALS: BP 109/68; TEMP 97.7; O2SAT 94
[2025-08-02] MEDS: ceFAZolin SOD 1 GM in DEXTROSE 5% (D5W) ADV/MINI-BAG 50 ML IV SCH (20:19)
[2025-08-02] MEDS: ASPIRIN 81 MG ENTERIC TABLET PO SCH (20:19)
[2025-08-02] MEDS: CETIRIZINE 10 MG TAB PO SCH (20:20)
[2025-08-02] MEDS: DOCUSATE SODIUM 100 MG CAPSULE PO SCH (20:20)
[2025-08-02] MEDS: PERCOCET 5MG/325MG TAB PO PRN (20:20)
[2025-08-02] MEDS: EZETIMIBE 10 MG TABLET PO SCH (20:20)
[2025-08-02] MEDS: ATORVASTATIN 20 MG TAB PO SCH (20:20)
[2025-08-02 21:01] VITALS: BP 123/65; TEMP 97.3; O2SAT 94
[2025-08-03] VITALS (7 sets, daily range): BP systolic 123–155; BP diastolic 65–67; TEMP 97.7–98.1; O2SAT 95–98
[2025-08-03] MEDS: LEVOTHYROXINE 75 MCG TABLET (0.075 MG) PO SCH (05:30)
[2025-08-03 08:00] LABS: PLATELET COUNT, AUTOMATED 289 10^3/uL (150-450)
[2025-08-03 08:22] LABS: CALCIUM LEVEL 8.6 MG/DL (8.3-10.6); CARBON DIOXIDE LEVEL 26.0 MMOL/L (20-31); CHLORIDE LEVEL 107.0 MMOL/L (98-107); CREATININE FOR GFR 1.1 MG/DL (0.55-1.30); GLOMERULAR FILTRATION RATE 54.4 (>45); POTASSIUM SERUM 4.5 MMOL/L (3.5-5.1); SODIUM LEVEL 141.0 MMOL/L (136-145)
[2025-08-03] MEDS: ONDANSETRON 4MG/2ML VIAL IV PRN (09:28)
[2025-08-03] MEDS ORDERED: HYDR-3715 PO (12:30)
== END 2025-08-03 15:52 | disposition home or self-care (01) ==
LOC: M SDC 11:29 → M MSPAV 17:55 → M SDC 08-03 15:52
PROVIDERS: ATTEND Urology
DX: C64.2 Malignant neoplasm of left kidney, except renal pelvis (principal); E78.5 Hyperlipidemia, unspecified; E03.9 Hypothyroidism, unspecified; K21.9 Gastro-esophageal reflux disease without esophagitis; F12.10 Cannabis abuse, uncomplicated; F41.9 Anxiety disorder, unspecified; Z79.82 Long term (current) use of aspirin; Z79.899 Other long term (current) drug therapy
CPT/HCPCS: 36415; 50543; 80048; 85027; 86850; 86900; 86901; 88307; 96361; 96365; 96366; 96375; J0360; J0665; J0688; J0690; J1100; J1171; J1596; J2151; J2250; J2405; J2765; J3010; S2900

== ENCOUNTER → 2025-08-29 | Outpatient (REF) | payer MEDICARE, MEDICAID ==
[~2025-08-29] MED LIST changes: +ATOR80TA59 PO; +EZET10TA57 PO; +HYDR-3715 PO; +HYDR-4571 PO; -LIDOCAINE 2% 100 MG/5 ML SDV (FOR ANES.) As Ordered ONE; -ONDANSETRON 4MG/2ML VIAL As Ordered ONE; -ROCURONIUM BROMIDE 50MG/5ML VIAL As Ordered ONE; -SUGAMMADEX SODIUM 200 MG/2 ML VIAL As Ordered ONE; +TACR0.1O TOP; -dexAMETHasone 4 MG/ML 1 ML VIAL As Ordered ONE
[2025-08-29 14:53] LABS: PLATELET COUNT, AUTOMATED 295 10^3/uL (150-450)
[2025-08-29 15:20] LABS: CALCIUM LEVEL 8.9 MG/DL (8.3-10.6); CARBON DIOXIDE LEVEL 30.0 MMOL/L (20-31); CHLORIDE LEVEL 106.0 MMOL/L (98-107); CREATININE FOR GFR 0.96 MG/DL (0.55-1.30); GLOMERULAR FILTRATION RATE 64.1 (>45); POTASSIUM SERUM 4.3 MMOL/L (3.5-5.1); SODIUM LEVEL 142.0 MMOL/L (136-145)
== END ==
LOC: M LABDRWAD 12:42 → M SMT 12:42
PROVIDERS: ATTEND Nurse Practitioner Family
DX: Z48.89 Encounter for other specified surgical aftercare (principal)